=== PATIENT | male | born 1990 | race Caucasian/White ===

== ENCOUNTER 2019-07-19 20:17 | Inpatient (IN) | payer SELFPAY ==
--- NOTE | 2019-07-19 22:16 | EDM.PDOC ---
ED HPI GENERAL MEDICAL PROBLEM - General Chief Complaint: Gastrointestinal Problem Stated Complaint: explosive diarrhea Time Seen by Provider: 07/19/19 21:06 Source of Information: Reports: Patient History Limitations: Reports: No Limitations - History of Present Illness INITIAL COMMENTS - FREE TEXT/NARRATIVE: 29-year-old male presents for evaluation and treatment of diarrhea. Patient reports he has been experiencing diarrhea for the last 1-2 months. Going approximately 10 times a day. At this time he is wearing depends. He reports significant stool urgency with this. States it is very watery and is foul- smelling. He denies any blood in his stool, abdominal pain, nausea, vomiting, fevers or chills. He denies any urinary symptoms. He has been trying over-the- counter antidiarrheal pills without any relief. he has never been seen for this. he denies any recent travel. No history of any recent antibiotic usage. Patient is a type I diabetic. He states that his sugars have been running good for him in the 200s. He is on Lantus and sliding scale NovoLog. [facility]. Patient is seen in the ER on June 09. Under have hypoalbuminemia. Prescribed Lasix for edema. He states that this has now resolved. - Related Data Allergies Allergy/AdvReac Type Severity Reaction Status Date / Time No Known Allergies Allergy Verified 06/08/19 22:48 Home Meds: Home Meds Insulin Glargine,Hum.Rec.Anlog [Lantus Solostar] 36 unit SQ DAILY 11/06/17 [ History] Insulin Lispro [Humalog Kwikpen U-200] 1 unit SUBCUT ASDIRECTED 11/06/17 [ History] Past Medical History - Past Health History Medical/Surgical History: Denies Medical/Surgical History Other Cardiovascular History: aunt states patient has been having blood pressure issues Endocrine/Metabolic History: Reports: Diabetes, Type I Other Dermatologic History: has had foot infections Social & Family History - Family History Family Medical History: Noncontributory - Tobacco Use Smoking Status *Q: Never Smoker Second Hand Smoke Exposure: No - Caffeine Use Caffeine Use: Reports: Coffee - Recreational Drug Use Recreational Drug Use: No ED ROS GENERAL - Review of Systems Review Of Systems: See Below Constitutional: Denies: Fever, Chills Cardiovascular: Denies: Edema Endocrine: Reports: High Glucose (reprots sugars in reji 200-300 recently) GI/Abdominal: Reports: Diarrhea. Denies: Abdominal Pain, Bloody Stool, Nausea, Vomiting : Reports: No Symptoms ED EXAM, GI/ABD - Physical Exam Exam: See Below Exam Limited By: No Limitations General Appearance: Alert, WD/WN, No Apparent Distress Nose: Normal Inspection Throat/Mouth: Normal Inspection, Normal Lips, Normal Voice, No Airway Compromise Respiratory/Chest: No Respiratory Distress, Lungs Clear, Normal Breath Sounds Cardiovascular: Normal Peripheral Pulses, No Murmur, Tachycardia GI/Abdominal Exam: Normal Bowel Sounds, Soft, Non-Tender Neurological: Alert, Oriented, Normal Cognition Psychiatric: Normal Affect, Normal Mood Skin Exam: Warm, Dry, Normal Color Course - Vital Signs Last Recorded V/S: Last Vital Signs Temp 96.7 F 07/19/19 20:25 Pulse 114 H 07/19/19 20:25 Resp 16 07/19/19 20:25 BP 151/113 H 07/19/19 20:25 Pulse Ox 100 07/19/19 20:25 - Orders/Labs/Meds Orders: Active Orders 24 hr Category Date Time Status Peripheral IV Care [RC] . DIRECTED Care 07/19/19 22:18 Active C DIFFICILE BY PCR W/NAP1 [MOLEC] Stat Lab 07/19/19 22:33 Received CULTURE STOOL + SHIGATOX [RM] Stat Lab 07/19/19 22:33 Received WBC, STOOL [OP] Stat Lab 07/19/19 22:33 Received Insulin Regular, Human [HumuLIN R] Med 07/19/19 23:27 Stat 5 unit SUBCUT NOW STA Insulin Regular, Human [HumuLIN R] 100 unit Med 07/19/19 23:15 Active Sodium Chloride 0.9% [Normal Saline] 99 ml IV TITRATE Sodium Chloride 0.9% [Normal Saline] 1,000 ml Med 07/19/19 23:14 Active IV ONETIME Sodium Chloride 0.9% [Saline Flush] Med 07/19/19 22:18 Active 10 ml FLUSH ASDIRECTED PRN Peripheral IV Insertion Adult [OM.PC] Routine Oth 07/19/19 22:18 Ordered Medication Orders Sodium Chloride (Normal Saline) 1,000 mls @ 999 mls/hr IV ONETIME ONE Stop: 07/20/19 00:14 Insulin Human Regular 100 unit (/ Sodium Chloride) 100 mls @ 5.89 mls/hr IV TITRATE SRINIVAS; Protocol Sodium Chloride (Saline Flush) 10 ml FLUSH ASDIRECTED PRN PRN Reason: Keep Vein Open Last Admin: 07/19/19 22:45 Dose: 10 ml Labs: Laboratory Tests 07/19/19 07/19/19 07/19/19 Range/Units 21:32 21:32 21:32 WBC 7.79 (4.23-9.07) K/mm3 RBC 4.74 (4.63-6.08) M/mm3 Hgb 14.6 (13.7-17.5) gm/L Hct 40.8 (40.1-51.0) % MCV 86.1 D (79.0-92.2) fl MCH 30.8 (25.7-32.2) pg MCHC 35.8 H (32.2-35.5) g/dl RDW Std Deviation 38.3 (35.1-43.9) fL Plt Count 375 H (163-337) K/mm3 MPV 9.2 L (9.4-12.3) fl Neutrophils % (Manual) 58 (40-60) % Band Neutrophils % 0 (0-10) % Lymphocytes % (Manual) 31 (20-40) % Atypical Lymphs % 0 % Monocytes % (Manual) 8 (2-10) % Eosinophils % (Manual) 3 (0.8-7.0) % Basophils % (Manual) 0 L (0.2-1.2) Platelet Estimate Adequate RBC Morph Comment Normal Puncture Site ABG pH (7.35-7.45) ABG pCO2 (35.0-45.0) mmHg ABG pO2 (80.0-100.0) mmHg ABG HCO3 (22.0-26.0) meq/L ABG O2 Saturation (96.0-97.0) % ABG Base Excess (-2-2.0) Fernando Test A-a Gradient mmHg O2 Delivery Device FiO2 (21.00-100.00) % Sodium 132 L (136-145) mEq/L Potassium 3.3 L (3.5-5.1) mEq/L Chloride 93 L (98-107) mEq/L Carbon Dioxide 22 (21-32) mEq/L Anion Gap 20.3 H (5-15) BUN 10 (7-18) mg/dL Creatinine 1.3 (0.7-1.3) mg/dL Est Cr Clr Drug Dosing 69.30 mL/min Estimated GFR (MDRD) > 60 (>60) mL/min BUN/Creatinine Ratio 7.7 L (14-18) Glucose 785 H* (74-106) mg/dL Hemoglobin A1c (4.50-6.20) % Calcium 8.2 L (8.5-10.1) mg/dL Magnesium 1.8 (1.8-2.4) mg/dl Total Bilirubin 0.7 (0.2-1.0) mg/dL AST 17 (15-37) U/L ALT 39 (16-63) U/L Alkaline Phosphatase 190 H (46-116) U/L C-Reactive Protein < 0.2 (<1.0) mg/dL Total Protein 6.1 L (6.4-8.2) g/dl Albumin 2.8 L (3.4-5.0) g/dl Globulin 3.3 gm/dL Albumin/Globulin Ratio 0.9 L (1-2) Urine Color (Yellow) Urine Appearance (Clear) Urine pH (5.0-8.0) Ur Specific [place] (1.005-1.030) Urine Protein (Negative) Urine Glucose (UA) (Negative) Urine Ketones (Negative) Urine Occult Blood (Negative) Urine Nitrite (Negative) Urine Bilirubin (Negative) Urine Urobilinogen (0.2-1.0) Ur Leukocyte Esterase (Negative) Urine RBC (0-5) /hpf Urine WBC (0-5) /hpf Ur Squamous Epith Cells (0-5) /hpf Urine Bacteria (FEW) /hpf Urine Mucus (FEW) /hpf Ketones 3.03 (0.0-0.3) mM 07/19/19 07/19/19 07/19/19 Range/Units 21:32 21:52 22:40 WBC (4.23-9.07) K/mm3 RBC (4.63-6.08) M/mm3 Hgb (13.7-17.5) gm/L Hct (40.1-51.0) % MCV (79.0-92.2) fl MCH (25.7-32.2) pg MCHC (32.2-35.5) g/dl RDW Std Deviation (35.1-43.9) fL Plt Count (163-337) K/mm3 MPV (9.4-12.3) fl Neutrophils % (Manual) (40-60) % Band Neutrophils % (0-10) % Lymphocytes % (Manual) (20-40) % Atypical Lymphs % % Monocytes % (Manual) (2-10) % Eosinophils % (Manual) (0.8-7.0) % Basophils % (Manual) (0.2-1.2) Platelet Estimate RBC Morph Comment Puncture Site Lt radial ABG pH 7.34 L (7.35-7.45) ABG pCO2 33.0 L (35.0-45.0) mmHg ABG pO2 93.0 (80.0-100.0) mmHg ABG HCO3 17.3 L (22.0-26.0) meq/L ABG O2 Saturation 97.5 H (96.0-97.0) % ABG Base Excess -7.0 L (-2-2.0) Fernando Test Positive A-a Gradient 16 mmHg O2 Delivery Device Room air FiO2 21.00 (21.00-100.00) % Sodium (136-145) mEq/L Potassium (3.5-5.1) mEq/L Chloride (98-107) mEq/L Carbon Dioxide (21-32) mEq/L Anion Gap (5-15) BUN (7-18) mg/dL Creatinine (0.7-1.3) mg/dL Est Cr Clr Drug Dosing mL/min Estimated GFR (MDRD) (>60) mL/min BUN/Creatinine Ratio (14-18) Glucose (74-106) mg/dL Hemoglobin A1c 12.10 H (4.50-6.20) % Calcium (8.5-10.1) mg/dL Magnesium (1.8-2.4) mg/dl Total Bilirubin (0.2-1.0) mg/dL AST (15-37) U/L ALT (16-63) U/L Alkaline Phosphatase (46-116) U/L C-Reactive Protein (<1.0) mg/dL Total Protein (6.4-8.2) g/dl Albumin (3.4-5.0) g/dl Globulin gm/dL Albumin/Globulin Ratio (1-2) Urine Color Light yellow (Yellow) Urine Appearance Clear (Clear) Urine pH 6.0 (5.0-8.0) Ur Specific [place] 1.010 (1.005-1.030) Urine Protein Negative (Negative) Urine Glucose (UA) 2+ H (Negative) Urine Ketones 2+ H (Negative) Urine Occult Blood Negative (Negative) Urine Nitrite Negative (Negative) Urine Bilirubin Negative (Negative) Urine Urobilinogen 0.2 (0.2-1.0) Ur Leukocyte Esterase Negative (Negative) Urine RBC Not seen (0-5) /hpf Urine WBC Not seen (0-5) /hpf Ur Squamous Epith Cells Not seen (0-5) /hpf Urine Bacteria Rare (FEW) /hpf Urine Mucus Rare (FEW) /hpf Ketones (0.0-0.3) mM Meds: Medications Generic Name Dose Route Start Last Admin Trade Name Freq PRN Reason Stop Dose Admin Sodium Chloride 1,000 mls @ 999 mls/hr 07/19/19 23:14 Normal Saline IV 07/20/19 00:14 ONETIME ONE Insulin Human Regular 100 unit 100 mls @ 5.89 mls/hr 07/19/19 23:15 / Sodium Chloride IV TITRATE SRINIVAS Protocol 0.1 UNITS/KG/HR Sodium Chloride 10 ml 07/19/19 22:18 07/19/19 22:45 Saline Flush FLUSH 10 ml ASDIRECTED PRN Administration Keep Vein Open Discontinued Medications Generic Name Dose Route Start Last Admin Trade Name Rebekah PRN Reason Stop Dose Admin Sodium Chloride 1,000 mls @ 999 mls/hr 07/19/19 22:18 07/19/19 22:45 Normal Saline IV 07/19/19 23:18 999 mls/hr ONETIME ONE Administration Insulin Human Regular 5 unit 07/19/19 23:15 Humulin R IV 07/19/19 23:16 ONETIME ONE Loperamide HCl 4 mg 07/19/19 23:12 07/19/19 23:23 Imodium PO 07/19/19 23:13 4 mg ONETIME ONE Administration Potassium Chloride 40 meq 07/19/19 23:11 07/19/19 23:23 Klor-Con M20 PO 07/19/19 23:12 40 meq ONETIME ONE Administration - Re-Assessments/Exams Free Text/Narrative Re-Assessment/Exam: 07/19/19 23:10 Patient's blood sugar came back at 785. Unfortunately, I did not allow him to eat in the ER as he states his sugars had only been in the 200s to 300s which is normal for him. He then tells me that he went to [facility] and had food at [facility] with a soda and a frosty and before coming to the ER. He did take his Lantus today and did take 12 units with his Zoond[employer] meal. He states his last blood sugar prior to arrival in the ER was in the 300s. He then ate a sandwich here in the ER. He then continued to feel hungry so he ordered [employer]; has not yet arrived. He cannot eat this. Fluids were started. We will also give him 5 units of insulin and start him on a drip. I feel he needs to be admitted. He is not very concerned about his sugar of 785 and feels he can bring this down. Discussed with Dr. Huertas who recommends admission. Patient is agreeable to do this. Discussed case with Dr. Rowland will admit to the ICU. Departure - Departure Time of Disposition: 23:45 Disposition: Admitted As Inpatient 65 Condition: Fair Clinical Impression: Diarrhea, Hyperglycemia - Discharge Information *PRESCRIPTION DRUG MONITORING PROGRAM REVIEWED*: No *COPY OF PRESCRIPTION DRUG MONITORING REPORT IN PATIENT VI: No Referrals: Emre Burciaga MD [Primary Care Provider] - Forms: ED Department Discharge - My Orders Last 24 Hours: My Active Orders 07/19/19 22:18 Peripheral IV Care [RC] . DIRECTED Sodium Chloride 0.9% [Saline Flush] 10 ml FLUSH ASDIRECTED PRN Peripheral IV Insertion Adult [OM.PC] Routine 07/19/19 22:33 C DIFFICILE BY PCR W/NAP1 [MOLEC] Stat CULTURE STOOL + SHIGATOX [RM] Stat WBC, STOOL [OP] Stat 07/19/19 23:14 Sodium Chloride 0.9% [Normal Saline] 1,000 ml IV ONETIME 07/19/19 23:15 Insulin Regular, Human [HumuLIN R] 100 unit Sodium Chloride 0.9% [Normal Saline] 99 ml IV TITRATE 07/19/19 23:27 Insulin Regular, Human [HumuLIN R] 5 unit SUBCUT NOW STA - Assessment/Plan Last 24 Hours: My Active Orders 07/19/19 22:18 Peripheral IV Care [RC] . DIRECTED Sodium Chloride 0.9% [Saline Flush] 10 ml FLUSH ASDIRECTED PRN Peripheral IV Insertion Adult [OM.PC] Routine 07/19/19 22:33 C DIFFICILE BY PCR W/NAP1 [MOLEC] Stat CULTURE STOOL + SHIGATOX [RM] Stat WBC, STOOL [OP] Stat 07/19/19 23:14 Sodium Chloride 0.9% [Normal Saline] 1,000 ml IV ONETIME 07/19/19 23:15 Insulin Regular, Human [HumuLIN R] 100 unit Sodium Chloride 0.9% [Normal Saline] 99 ml IV TITRATE 07/19/19 23:27 Insulin Regular, Human [HumuLIN R] 5 unit SUBCUT NOW STA
[2019-07-19] MEDS ORDERED: Sodium Chloride 0.9% 10 ML Syringe FLUSH PRN (22:18)
[2019-07-19] MEDS ORDERED: Sodium Chloride 0.9% 1,000 ML IV ONE ×2 (22:18→23:14)
[2019-07-19 22:57] LABS: HEMOGLOBIN A1C 12.1 % (4.50-6.20)
[2019-07-19] MEDS ORDERED: Potassium Chloride 20 MEQ Tab.ER PO ONE (23:11)
[2019-07-19] MEDS ORDERED: Loperamide 2 MG Cap PO ONE (23:12)
[2019-07-19] MEDS ORDERED: Insulin Regular, Human 100 Units/ML 3 ML Vial IV ONE (23:15)
[2019-07-19] MEDS ORDERED: Insulin Regular, Human 100 Units/ML 3 ML Vial SUBCUT STA (23:27)
[2019-07-20] MEDS ORDERED: Acetaminophen 325 MG Tab PO PRN (01:04)
[2019-07-20] MEDS ORDERED: Ondansetron 4 MG Tab.DIS PO PRN (01:04)
--- NOTE | 2019-07-20 01:14 | PCM.HP.2 ---
H&P History of Present Illness - General Date of Service: 07/20/19 Admit Problem/Dx: Admission Diagnosis/Problem Admission Diagnosis/Problem Hyperglycemia - History of Present Illness Initial Comments - Free Text/Narative: 29-year-old type I diabetic comes into the emergency room with diarrhea for the last 2 months. He has had multiple bowel movements a day that are loose and watery. He states when he eats food seems to go right through him. Patient denies any bloody stools, hematochezia, or melena. He states that several months ago he did have antibiotics for staph infection. Patient appears to be confused about exactly when that was and how it relates to his diarrhea. In the emergency room his blood sugar was found to be 785. Patient went out with friends and ate at [facility] and drink a soda and half of a frosty before going to the emergency room. He gave himself 12 units with his meal. He did take his Lantus 36 units today. In the emergency room he did give a stool sample and it was positive for C. difficile toxin. in the emergency room he was given another 5 units of Humalog and started on an insulin drip. He was then transferred to the ICU. - Related Data Allergies/Adverse Reactions: Allergies Allergy/AdvReac Type Severity Reaction Status Date / Time No Known Allergies Allergy Verified 06/08/19 22:48 Home Medications: Home Meds Insulin Glargine,Hum.Rec.Anlog [Lantus Solostar] 36 unit SQ DAILY 11/06/17 [ History] Insulin Lispro [Humalog Kwikpen U-200] 1 unit SUBCUT ASDIRECTED 11/06/17 [ History] Vancomycin [Vancomycin 50 MG/ML Soln] 125 mg PO QID bottle 07/20/19 [Rx] Past Medical History - Past Health History Medical/Surgical History: Denies Medical/Surgical History Other Cardiovascular History: aunt states patient has been having blood pressure issues Endocrine/Metabolic History: Reports: Diabetes, Type I Other Dermatologic History: has had foot infections Social & Family History - Family History Family Medical History: Noncontributory - Tobacco Use Smoking Status *Q: Current Every Day Smoker Years of Tobacco use: 10 Packs/Tins Daily: 0.5 Used Tobacco, but Quit: No Second Hand Smoke Exposure: No - Caffeine Use Caffeine Use: Reports: Coffee - Recreational Drug Use Recreational Drug Use: No H&P Review of Systems - Review of Systems: Review Of Systems: ROS reveals no pertinent complaints other than HPI. Exam - Exam Exam: See Below - Vital Signs Vital Signs: Last Vital Signs Temp 97.5 F 07/20/19 00:25 Pulse 95 07/20/19 00:25 Resp 16 07/20/19 00:25 BP 131/98 H 07/20/19 00:25 Pulse Ox 99 07/20/19 00:25 Weight: 117 lb 3.2 oz - Exam Quality Assessment: No: Supplemental Oxygen General: Alert, Oriented HEENT: Conjunctiva Clear, EACs Clear, Mucosa Moist & [place] Neck: Supple, Trachea Midline Lungs: Clear to Auscultation, Normal Respiratory Effort Cardiovascular: Regular Rate, Regular Rhythm GI/Abdominal Exam: Normal Bowel Sounds, Soft, Non-Tender, No Organomegaly, No Distention Extremities: Normal Inspection, Normal Range of Motion, Non-Tender, No Pedal Edema Skin: Warm, Dry, Intact Neuro Extensive - Mental Status: Alert, Oriented x3 Neuro Extensive - Motor, Sensory, Reflexes: CN II-XII Intact, Normal Gait Psychiatric: Alert, Normal Affect, Normal Mood - Patient Data Lab Results Last 24 hrs: Laboratory Results - last 24 hr 07/19/19 07/19/19 07/19/19 Range/Units 21:32 21:32 21:32 WBC 7.79 (4.23-9.07) K/mm3 RBC 4.74 (4.63-6.08) M/mm3 Hgb 14.6 (13.7-17.5) gm/L Hct 40.8 (40.1-51.0) % MCV 86.1 D (79.0-92.2) fl MCH 30.8 (25.7-32.2) pg MCHC 35.8 H (32.2-35.5) g/dl RDW Std Deviation 38.3 (35.1-43.9) fL Plt Count 375 H (163-337) K/mm3 MPV 9.2 L (9.4-12.3) fl Neutrophils % (Manual) 58 (40-60) % Band Neutrophils % 0 (0-10) % Lymphocytes % (Manual) 31 (20-40) % Atypical Lymphs % 0 % Monocytes % (Manual) 8 (2-10) % Eosinophils % (Manual) 3 (0.8-7.0) % Basophils % (Manual) 0 L (0.2-1.2) Platelet Estimate Adequate RBC Morph Comment Normal Puncture Site ABG pH (7.35-7.45) ABG pCO2 (35.0-45.0) mmHg ABG pO2 (80.0-100.0) mmHg ABG HCO3 (22.0-26.0) meq/L ABG O2 Saturation (96.0-97.0) % ABG Base Excess (-2-2.0) Fernando Test A-a Gradient mmHg O2 Delivery Device FiO2 (21.00-100.00) % Sodium 132 L (136-145) mEq/L Potassium 3.3 L (3.5-5.1) mEq/L Chloride 93 L (98-107) mEq/L Carbon Dioxide 22 (21-32) mEq/L Anion Gap 20.3 H (5-15) BUN 10 (7-18) mg/dL Creatinine 1.3 (0.7-1.3) mg/dL Est Cr Clr Drug Dosing 69.30 mL/min Estimated GFR (MDRD) > 60 (>60) mL/min BUN/Creatinine Ratio 7.7 L (14-18) Glucose 785 H* (74-106) mg/dL Hemoglobin A1c (4.50-6.20) % Calcium 8.2 L (8.5-10.1) mg/dL Magnesium 1.8 (1.8-2.4) mg/dl Total Bilirubin 0.7 (0.2-1.0) mg/dL AST 17 (15-37) U/L ALT 39 (16-63) U/L Alkaline Phosphatase 190 H (46-116) U/L C-Reactive Protein < 0.2 (<1.0) mg/dL Total Protein 6.1 L (6.4-8.2) g/dl Albumin 2.8 L (3.4-5.0) g/dl Globulin 3.3 gm/dL Albumin/Globulin Ratio 0.9 L (1-2) Urine Color (Yellow) Urine Appearance (Clear) Urine pH (5.0-8.0) Ur Specific [place] (1.005-1.030) Urine Protein (Negative) Urine Glucose (UA) (Negative) Urine Ketones (Negative) Urine Occult Blood (Negative) Urine Nitrite (Negative) Urine Bilirubin (Negative) Urine Urobilinogen (0.2-1.0) Ur Leukocyte Esterase (Negative) Urine RBC (0-5) /hpf Urine WBC (0-5) /hpf Ur Squamous Epith Cells (0-5) /hpf Urine Bacteria (FEW) /hpf Urine Mucus (FEW) /hpf Ketones 3.03 (0.0-0.3) mM C.difficile 027-NAP1-B1 C. difficile Tox (PCR) 07/19/19 07/19/19 07/19/19 Range/Units 21:32 21:52 22:33 WBC (4.23-9.07) K/mm3 RBC (4.63-6.08) M/mm3 Hgb (13.7-17.5) gm/L Hct (40.1-51.0) % MCV (79.0-92.2) fl MCH (25.7-32.2) pg MCHC (32.2-35.5) g/dl RDW Std Deviation (35.1-43.9) fL Plt Count (163-337) K/mm3 MPV (9.4-12.3) fl Neutrophils % (Manual) (40-60) % Band Neutrophils % (0-10) % Lymphocytes % (Manual) (20-40) % Atypical Lymphs % % Monocytes % (Manual) (2-10) % Eosinophils % (Manual) (0.8-7.0) % Basophils % (Manual) (0.2-1.2) Platelet Estimate RBC Morph Comment Puncture Site ABG pH (7.35-7.45) ABG pCO2 (35.0-45.0) mmHg ABG pO2 (80.0-100.0) mmHg ABG HCO3 (22.0-26.0) meq/L ABG O2 Saturation (96.0-97.0) % ABG Base Excess (-2-2.0) Fernando Test A-a Gradient mmHg O2 Delivery Device FiO2 (21.00-100.00) % Sodium (136-145) mEq/L Potassium (3.5-5.1) mEq/L Chloride (98-107) mEq/L Carbon Dioxide (21-32) mEq/L Anion Gap (5-15) BUN (7-18) mg/dL Creatinine (0.7-1.3) mg/dL Est Cr Clr Drug Dosing mL/min Estimated GFR (MDRD) (>60) mL/min BUN/Creatinine Ratio (14-18) Glucose (74-106) mg/dL Hemoglobin A1c 12.10 H (4.50-6.20) % Calcium (8.5-10.1) mg/dL Magnesium (1.8-2.4) mg/dl Total Bilirubin (0.2-1.0) mg/dL AST (15-37) U/L ALT (16-63) U/L Alkaline Phosphatase (46-116) U/L C-Reactive Protein (<1.0) mg/dL Total Protein (6.4-8.2) g/dl Albumin (3.4-5.0) g/dl Globulin gm/dL Albumin/Globulin Ratio (1-2) Urine Color Light yellow (Yellow) Urine Appearance Clear (Clear) Urine pH 6.0 (5.0-8.0) Ur Specific [place] 1.010 (1.005-1.030) Urine Protein Negative (Negative) Urine Glucose (UA) 2+ H (Negative) Urine Ketones 2+ H (Negative) Urine Occult Blood Negative (Negative) Urine Nitrite Negative (Negative) Urine Bilirubin Negative (Negative) Urine Urobilinogen 0.2 (0.2-1.0) Ur Leukocyte Esterase Negative (Negative) Urine RBC Not seen (0-5) /hpf Urine WBC Not seen (0-5) /hpf Ur Squamous Epith Cells Not seen (0-5) /hpf Urine Bacteria Rare (FEW) /hpf Urine Mucus Rare (FEW) /hpf Ketones (0.0-0.3) mM C.difficile 027-NAP1-B1 Presumptive negative C. difficile Tox (PCR) Positive H 07/19/19 07/19/19 Range/Units 22:40 23:55 WBC (4.23-9.07) K/mm3 RBC (4.63-6.08) M/mm3 Hgb (13.7-17.5) gm/L Hct (40.1-51.0) % MCV (79.0-92.2) fl MCH (25.7-32.2) pg MCHC (32.2-35.5) g/dl RDW Std Deviation (35.1-43.9) fL Plt Count (163-337) K/mm3 MPV (9.4-12.3) fl Neutrophils % (Manual) (40-60) % Band Neutrophils % (0-10) % Lymphocytes % (Manual) (20-40) % Atypical Lymphs % % Monocytes % (Manual) (2-10) % Eosinophils % (Manual) (0.8-7.0) % Basophils % (Manual) (0.2-1.2) Platelet Estimate RBC Morph Comment Puncture Site Lt radial ABG pH 7.34 L (7.35-7.45) ABG pCO2 33.0 L (35.0-45.0) mmHg ABG pO2 93.0 (80.0-100.0) mmHg ABG HCO3 17.3 L (22.0-26.0) meq/L ABG O2 Saturation 97.5 H (96.0-97.0) % ABG Base Excess -7.0 L (-2-2.0) Fernando Test Positive A-a Gradient 16 mmHg O2 Delivery Device Room air FiO2 21.00 (21.00-100.00) % Sodium (136-145) mEq/L Potassium (3.5-5.1) mEq/L Chloride (98-107) mEq/L Carbon Dioxide (21-32) mEq/L Anion Gap (5-15) BUN (7-18) mg/dL Creatinine (0.7-1.3) mg/dL Est Cr Clr Drug Dosing mL/min Estimated GFR (MDRD) (>60) mL/min BUN/Creatinine Ratio (14-18) Glucose 568 H* (74-106) mg/dL Hemoglobin A1c (4.50-6.20) % Calcium (8.5-10.1) mg/dL Magnesium (1.8-2.4) mg/dl Total Bilirubin (0.2-1.0) mg/dL AST (15-37) U/L ALT (16-63) U/L Alkaline Phosphatase (46-116) U/L C-Reactive Protein (<1.0) mg/dL Total Protein (6.4-8.2) g/dl Albumin (3.4-5.0) g/dl Globulin gm/dL Albumin/Globulin Ratio (1-2) Urine Color (Yellow) Urine Appearance (Clear) Urine pH (5.0-8.0) Ur Specific [place] (1.005-1.030) Urine Protein (Negative) Urine Glucose (UA) (Negative) Urine Ketones (Negative) Urine Occult Blood (Negative) Urine Nitrite (Negative) Urine Bilirubin (Negative) Urine Urobilinogen (0.2-1.0) Ur Leukocyte Esterase (Negative) Urine RBC (0-5) /hpf Urine WBC (0-5) /hpf Ur Squamous Epith Cells (0-5) /hpf Urine Bacteria (FEW) /hpf Urine Mucus (FEW) /hpf Ketones (0.0-0.3) mM C.difficile 027-NAP1-B1 C. difficile Tox (PCR) Result Diagrams: 07/20/19 05:20 07/20/19 05:20 Yayo Results Last 24 hrs: Microbiology 07/19/19 22:33 Stool for WBCs - Final Stool / Feces Problem List Initiated/Reviewed/Updated: Yes Orders Last 24hrs: Active Orders 24 hr Category Date Time Status Patient Status [ADT] Routine ADT 07/20/19 00:00 Active Blood Glucose Check, Bedside [RC] Q1H Care 07/20/19 01:08 Ordered Oxygen Therapy [RC] PRN Care 07/20/19 01:05 Ordered Peripheral IV Care [RC] Q2HR Care 07/19/19 22:18 Active Up ad Karla [RC] ASDIRECTED Care 07/20/19 01:04 Ordered VTE/DVT Education [RC] PER UNIT ROUTINE Care 07/20/19 01:05 Ordered Vital Signs [RC] ASDIRECTED Care 07/20/19 01:04 Ordered Consistent Carbohydrate Diet [DIET] Diet 07/20/19 Breakfast Ordered CBC WITH AUTO DIFF [HEME] AM Lab 07/20/19 05:11 Ordered COMPREHENSIVE METABOLIC PN,CMP [CHEM] AM Lab 07/20/19 05:11 Ordered CULTURE STOOL + SHIGATOX [RM] Stat Lab 07/19/19 22:33 Received MAGNESIUM [CHEM] AM Lab 07/20/19 05:11 Ordered Acetaminophen [Tylenol] Med 07/20/19 01:04 Ordered 650 mg PO Q4H PRN Enoxaparin [Lovenox] Med 07/20/19 09:00 Ordered 40 mg SUBCUT DAILY Insulin Glarg,Human.Rec.Analog [LantUS] Med 07/20/19 09:00 Ordered 36 unit SUBCUT DAILY Insulin Lispro [HumaLOG] Med 07/20/19 07:00 Ordered 12 unit SUBCUT TIDAC Insulin Regular, Human [HumuLIN R] 100 unit Med 07/19/19 23:15 Active Sodium Chloride 0.9% [Normal Saline] 99 ml IV TITRATE NS + KCl 20mEq/L [Normal Saline with 20 mEq KCl] 1,000 Med 07/20/19 01:15 Ordered ml IV ASDIRECTED Ondansetron [Zofran ODT] Med 07/20/19 01:04 Ordered 4 mg PO Q4H PRN Sodium Chloride 0.9% [Saline Flush] Med 07/19/19 22:18 Active 10 ml FLUSH ASDIRECTED PRN Vancomycin Med 07/20/19 01:15 Ordered 125 mg PO QID Peripheral IV Insertion Adult [OM.PC] Routine Oth 07/19/19 22:18 Ordered Resuscitation Status Routine Resus Stat 07/20/19 01:04 Ordered Medication Orders Acetaminophen (Tylenol) 650 mg PO Q4H PRN PRN Reason: Pain (Mild 1-3)/fever Enoxaparin Sodium (Lovenox) 40 mg SUBCUT DAILY [facility] Insulin Human Regular 100 unit (/ Sodium Chloride) 100 mls @ 5.89 mls/hr IV TITRATE SRINIVAS; Protocol Last Admin: 07/20/19 00:26 Dose: 0.1 units/kg/hr, 5.89 mls/hr Potassium Chloride/Sodium Chloride (Normal Saline With 20 Meq Kcl) 1,000 mls @ 250 mls/hr IV ASDIRECTED [facility] Insulin Glargine (Lantus) 36 unit SUBCUT DAILY [facility] Insulin Human Lispro (Humalog) 12 unit SUBCUT TIDAC SRINIVAS Ondansetron HCl (Zofran Odt) 4 mg PO Q4H PRN PRN Reason: nausea, able to take PO Sodium Chloride (Saline Flush) 10 ml FLUSH ASDIRECTED PRN PRN Reason: Keep Vein Open Last Admin: 07/19/19 22:45 Dose: 10 ml Vancomycin HCl (Vancomycin) 125 mg PO QID [facility] Assessment/Plan Comment:: Assessment * C. difficile colitis * Hyperosmolar hyperglycemia state with initial blood sugars of 785 * Type 1 diabetes poorly controlled with hemoglobiof 12.1 Plan * Admit to ICU * start vancomycin 125 mg by mouth 4 times a day for 10 days * normal saline with 20 mEq per liter KCl at 250 mL an hour * Fingerstick blood sugars every one hour * recheck basic metabolic panel and magnesium now * CBC, CMP, mag in the morning. * Insulin drip until blood sugars are less than 300 and then switched to sliding scale and a fixed dose. * Diabetic education is not available on the weekends so will do diabetic education with nursing and myself. * Restart diabetic diet/carb constant diet in the morning when blood sugars are less than 300. * Prognosis good * CODE STATUS full code - Mortality Measure Prognosis:: Good
[2019-07-20] MEDS ORDERED: Vancomycin 125 MG Cap PO SCH (01:15)
[2019-07-20] MEDS: NS + KCl 20mEq/L 1,000 ML IV SCH ×2 (01:36→05:31)
[2019-07-20] MEDS ORDERED: Vancomycin 50 MG/ML Oral Solution Bottle Kit PO ONE (02:00)
[2019-07-20] MEDS ORDERED: Potassium Chloride 20 MEQ Tab.ER PO ONE (06:56)
[2019-07-20] MEDS: Insulin Lispro 100 Units/ML 3 ML Vial SUBCUT SCH ×4 (07:55→10:56)
[2019-07-20] MEDS: Insulin Glarg,Human.Rec.Analog 100 UNIT/ML ML SUBCUT SCH ×2 (07:57→09:08)
[2019-07-20] MEDS: Enoxaparin 40 MG/0.4 ML Syringe SUBCUT SCH ×2 (07:58→09:08)
[2019-07-20] MEDS: Vancomycin 50 MG/ML Oral Solution Bottle Kit PO SCH ×2 (07:58→08:05)
--- NOTE | 2019-07-20 15:04 | PCM.DCSUM1 ---
Discharge Summary - Hospital Course HPI Initial Comments: 29-year-old type I diabetic comes into the emergency room with diarrhea for the last 2 months. He has had multiple bowel movements a day that are loose and watery. He states when he eats food seems to go right through him. Patient denies any bloody stools, hematochezia, or melena. He states that several months ago he did have antibiotics for staph infection. Patient appears to be confused about exactly when that was and how it relates to his diarrhea. In the emergency room his blood sugar was found to be 785. Patient went out with friends and ate at [employer] and drink a soda and half of a frosty before going to the emergency room. He gave himself 12 units with his meal. He did take his Lantus 36 units today. In the emergency room he did give a stool sample and it was positive for C. difficile toxin. in the emergency room he was given another 5 units of Humalog and started on an insulin drip. He was then transferred to the ICU. Diagnosis: Stroke: No - Discharge Data Discharge Date: 07/20/19 Discharge Disposition: Home, Self-Care 01 Condition: Good - Patient Summary/Data Hospital Course: Assessment * C. difficile colitis * Hyperosmolar hyperglycemia state with initial blood sugars of 785 * Type 1 diabetes poorly controlled with hemoglobiof 12.1 Plan * Admit to ICU * start vancomycin 125 mg by mouth 4 times a day for 10 days * normal saline with 20 mEq per liter KCl at 250 mL an hour * Fingerstick blood sugars every one hour * recheck basic metabolic panel and magnesium now * CBC, CMP, mag in the morning. * Insulin drip until blood sugars are less than 300 and then switched to sliding scale and a fixed dose. * Diabetic education is not available on the weekends so will do diabetic education with nursing and myself. * Restart diabetic diet/carb constant diet in the morning when blood sugars are less than 300. * Prognosis good * CODE STATUS full code - Patient Instructions Diet: Diabetic Diet Activity: As Tolerated Driving: May Drive Today Showering/Bathing: May Shower Notify Provider of: Fever, Nausea and/or Vomiting Other/Special Instructions: Follow up with PCP next week. Take 10 days of vancomycin 125 mg every 6 hours. Check blood sugars 4 times a day and follow a diabetic diet. - Discharge Plan *PRESCRIPTION DRUG MONITORING PROGRAM REVIEWED*: No *COPY OF PRESCRIPTION DRUG MONITORING REPORT IN PATIENT VI: No Home Medications: Home Meds Insulin Glargine,Hum.Rec.Anlog [Lantus Solostar] 36 unit SQ DAILY 11/06/17 [ History] Insulin Lispro [Humalog Kwikpen U-200] 1 unit SUBCUT ASDIRECTED 11/06/17 [ History] Vancomycin [Vancomycin 50 MG/ML Soln] 125 mg PO QID bottle 07/20/19 [Rx] Oxygen Therapy Mode: Room Air Patient Handouts: Hyperglycemia, [id number] Forms: ED Department Discharge Referrals: Emre Burciaga MD [Primary Care Provider] - - Discharge Summary/Plan Comment DC Time >30 min.: Yes Discharge Summary/Plan Comment: patient be discharged on vancomycin 125 mg by mouth every 6 hours for 10 days. Counseled on keeping his blood sugars better controlled and using his carb correction and sliding scale appropriately. Patient is to follow-up with his primary care provider early next week. - General Info Date of Service: 07/20/19 Admission Dx/Problem (Free Text: Admission Diagnosis/Problem Admission Diagnosis/Problem Hyperglycemia Subjective Update: patient did well overnight with blood sugars dropping into the upper 100s. He was switched over to sliding scale and fixed dose of basal and prandial insulin. Patient states he is doing well. He has not had any more bowel movements and has had 2 doses of vancomycin. - Review of Systems General: Reports: No Symptoms HEENT: Reports: No Symptoms Pulmonary: Reports: No Symptoms Cardiovascular: Reports: No Symptoms. Denies: Chest Pain, Dyspnea on Exertion Gastrointestinal: Reports: No Symptoms. Denies: Abdominal Pain - Patient Data Vitals - Most Recent: Last Vital Signs Temp 97.9 F 07/20/19 08:00 Pulse 95 07/20/19 08:00 Resp 15 07/20/19 08:00 BP 132/92 H 07/20/19 08:00 Pulse Ox 100 07/20/19 08:00 Weight - Most Recent: 117 lb 3.2 oz I&O - Last 24 hours: Intake & Output 07/20/19 07/20/19 07/20/19 06:59 14:59 22:59 Intake Total 1279 420 Balance 1279 420 Lab Results - Last 24 hrs: Laboratory Results - last 24 hr 07/19/19 07/19/19 07/19/19 Range/Units 21:32 21:32 21:32 WBC 7.79 (4.23-9.07) K/mm3 RBC 4.74 (4.63-6.08) M/mm3 Hgb 14.6 (13.7-17.5) gm/L Hct 40.8 (40.1-51.0) % MCV 86.1 D (79.0-92.2) fl MCH 30.8 (25.7-32.2) pg MCHC 35.8 H (32.2-35.5) g/dl RDW Std Deviation 38.3 (35.1-43.9) fL Plt Count 375 H (163-337) K/mm3 MPV 9.2 L (9.4-12.3) fl Neut % (Auto) (34.0-67.9) % Lymph % (Auto) (21.8-53.1) % [place] % (Auto) (5.3-12.2) % Eos % (Auto) (0.8-7.0) Baso % (Auto) (0.1-1.2) % Neut # (Auto) (1.78-5.38) K/mm3 Lymph # (Auto) (1.32-3.57) K/mm3 [place] # (Auto) (0.30-0.82) K/mm3 Eos # (Auto) (0.04-0.54) K/mm3 Baso # (Auto) (0.01-0.08) K/mm3 Neutrophils % (Manual) 58 (40-60) % Band Neutrophils % 0 (0-10) % Lymphocytes % (Manual) 31 (20-40) % Atypical Lymphs % 0 % Monocytes % (Manual) 8 (2-10) % Eosinophils % (Manual) 3 (0.8-7.0) % Basophils % (Manual) 0 L (0.2-1.2) Platelet Estimate Adequate RBC Morph Comment Normal Puncture Site ABG pH (7.35-7.45) ABG pCO2 (35.0-45.0) mmHg ABG pO2 (80.0-100.0) mmHg ABG HCO3 (22.0-26.0) meq/L ABG O2 Saturation (96.0-97.0) % ABG Base Excess (-2-2.0) Fernando Test A-a Gradient mmHg O2 Delivery Device FiO2 (21.00-100.00) % Sodium 132 L (136-145) mEq/L Potassium 3.3 L (3.5-5.1) mEq/L Chloride 93 L (98-107) mEq/L Carbon Dioxide 22 (21-32) mEq/L Anion Gap 20.3 H (5-15) BUN 10 (7-18) mg/dL Creatinine 1.3 (0.7-1.3) mg/dL Est Cr Clr Drug Dosing 69.30 mL/min Estimated GFR (MDRD) > 60 (>60) mL/min BUN/Creatinine Ratio 7.7 L (14-18) Glucose 785 H* (74-106) mg/dL POC Glucose (70-105) mg/dL Hemoglobin A1c (4.50-6.20) % Calcium 8.2 L (8.5-10.1) mg/dL Magnesium 1.8 (1.8-2.4) mg/dl Total Bilirubin 0.7 (0.2-1.0) mg/dL AST 17 (15-37) U/L ALT 39 (16-63) U/L Alkaline Phosphatase 190 H (46-116) U/L C-Reactive Protein < 0.2 (<1.0) mg/dL Total Protein 6.1 L (6.4-8.2) g/dl Albumin 2.8 L (3.4-5.0) g/dl Globulin 3.3 gm/dL Albumin/Globulin Ratio 0.9 L (1-2) Urine Color (Yellow) Urine Appearance (Clear) Urine pH (5.0-8.0) Ur Specific Oneco (1.005-1.030) Urine Protein (Negative) Urine Glucose (UA) (Negative) Urine Ketones (Negative) Urine Occult Blood (Negative) Urine Nitrite (Negative) Urine Bilirubin (Negative) Urine Urobilinogen (0.2-1.0) Ur Leukocyte Esterase (Negative) Urine RBC (0-5) /hpf Urine WBC (0-5) /hpf Ur Squamous Epith Cells (0-5) /hpf Urine Bacteria (FEW) /hpf Urine Mucus (FEW) /hpf Ketones 3.03 (0.0-0.3) mM C.difficile 027-NAP1-B1 C. difficile Tox (PCR) 07/19/19 07/19/19 07/19/19 Range/Units 21:32 21:52 22:33 WBC (4.23-9.07) K/mm3 RBC (4.63-6.08) M/mm3 Hgb (13.7-17.5) gm/L Hct (40.1-51.0) % MCV (79.0-92.2) fl MCH (25.7-32.2) pg MCHC (32.2-35.5) g/dl RDW Std Deviation (35.1-43.9) fL Plt Count (163-337) K/mm3 MPV (9.4-12.3) fl Neut % (Auto) (34.0-67.9) % Lymph % (Auto) (21.8-53.1) % [place] % (Auto) (5.3-12.2) % Eos % (Auto) (0.8-7.0) Baso % (Auto) (0.1-1.2) % Neut # (Auto) (1.78-5.38) K/mm3 Lymph # (Auto) (1.32-3.57) K/mm3 [place] # (Auto) (0.30-0.82) K/mm3 Eos # (Auto) (0.04-0.54) K/mm3 Baso # (Auto) (0.01-0.08) K/mm3 Neutrophils % (Manual) (40-60) % Band Neutrophils % (0-10) % Lymphocytes % (Manual) (20-40) % Atypical Lymphs % % Monocytes % (Manual) (2-10) % Eosinophils % (Manual) (0.8-7.0) % Basophils % (Manual) (0.2-1.2) Platelet Estimate RBC Morph Comment Puncture Site ABG pH (7.35-7.45) ABG pCO2 (35.0-45.0) mmHg ABG pO2 (80.0-100.0) mmHg ABG HCO3 (22.0-26.0) meq/L ABG O2 Saturation (96.0-97.0) % ABG Base Excess (-2-2.0) Fernando Test A-a Gradient mmHg O2 Delivery Device FiO2 (21.00-100.00) % Sodium (136-145) mEq/L Potassium (3.5-5.1) mEq/L Chloride (98-107) mEq/L Carbon Dioxide (21-32) mEq/L Anion Gap (5-15) BUN (7-18) mg/dL Creatinine (0.7-1.3) mg/dL Est Cr Clr Drug Dosing mL/min Estimated GFR (MDRD) (>60) mL/min BUN/Creatinine Ratio (14-18) Glucose (74-106) mg/dL POC Glucose (70-105) mg/dL Hemoglobin A1c 12.10 H (4.50-6.20) % Calcium (8.5-10.1) mg/dL Magnesium (1.8-2.4) mg/dl Total Bilirubin (0.2-1.0) mg/dL AST (15-37) U/L ALT (16-63) U/L Alkaline Phosphatase (46-116) U/L C-Reactive Protein (<1.0) mg/dL Total Protein (6.4-8.2) g/dl Albumin (3.4-5.0) g/dl Globulin gm/dL Albumin/Globulin Ratio (1-2) Urine Color Light yellow (Yellow) Urine Appearance Clear (Clear) Urine pH 6.0 (5.0-8.0) Ur Specific Oneco 1.010 (1.005-1.030) Urine Protein Negative (Negative) Urine Glucose (UA) 2+ H (Negative) Urine Ketones 2+ H (Negative) Urine Occult Blood Negative (Negative) Urine Nitrite Negative (Negative) Urine Bilirubin Negative (Negative) Urine Urobilinogen 0.2 (0.2-1.0) Ur Leukocyte Esterase Negative (Negative) Urine RBC Not seen (0-5) /hpf Urine WBC Not seen (0-5) /hpf Ur Squamous Epith Cells Not seen (0-5) /hpf Urine Bacteria Rare (FEW) /hpf Urine Mucus Rare (FEW) /hpf Ketones (0.0-0.3) mM C.difficile 027-NAP1-B1 Presumptive negative C. difficile Tox (PCR) Positive H 07/19/19 07/19/19 07/20/19 Range/Units 22:40 23:55 01:38 WBC (4.23-9.07) K/mm3 RBC (4.63-6.08) M/mm3 Hgb (13.7-17.5) gm/L Hct (40.1-51.0) % MCV (79.0-92.2) fl MCH (25.7-32.2) pg MCHC (32.2-35.5) g/dl RDW Std Deviation (35.1-43.9) fL Plt Count (163-337) K/mm3 MPV (9.4-12.3) fl Neut % (Auto) (34.0-67.9) % Lymph % (Auto) (21.8-53.1) % [place] % (Auto) (5.3-12.2) % Eos % (Auto) (0.8-7.0) Baso % (Auto) (0.1-1.2) % Neut # (Auto) (1.78-5.38) K/mm3 Lymph # (Auto) (1.32-3.57) K/mm3 [place] # (Auto) (0.30-0.82) K/mm3 Eos # (Auto) (0.04-0.54) K/mm3 Baso # (Auto) (0.01-0.08) K/mm3 Neutrophils % (Manual) (40-60) % Band Neutrophils % (0-10) % Lymphocytes % (Manual) (20-40) % Atypical Lymphs % % Monocytes % (Manual) (2-10) % Eosinophils % (Manual) (0.8-7.0) % Basophils % (Manual) (0.2-1.2) Platelet Estimate RBC Morph Comment Puncture Site Lt radial ABG pH 7.34 L (7.35-7.45) ABG pCO2 33.0 L (35.0-45.0) mmHg ABG pO2 93.0 (80.0-100.0) mmHg ABG HCO3 17.3 L (22.0-26.0) meq/L ABG O2 Saturation 97.5 H (96.0-97.0) % ABG Base Excess -7.0 L (-2-2.0) Fernando Test Positive A-a Gradient 16 mmHg O2 Delivery Device Room air FiO2 21.00 (21.00-100.00) % Sodium (136-145) mEq/L Potassium (3.5-5.1) mEq/L Chloride (98-107) mEq/L Carbon Dioxide (21-32) mEq/L Anion Gap (5-15) BUN (7-18) mg/dL Creatinine (0.7-1.3) mg/dL Est Cr Clr Drug Dosing mL/min Estimated GFR (MDRD) (>60) mL/min BUN/Creatinine Ratio (14-18) Glucose 568 H* (74-106) mg/dL POC Glucose 325 H (70-105) mg/dL Hemoglobin A1c (4.50-6.20) % Calcium (8.5-10.1) mg/dL Magnesium (1.8-2.4) mg/dl Total Bilirubin (0.2-1.0) mg/dL AST (15-37) U/L ALT (16-63) U/L Alkaline Phosphatase (46-116) U/L C-Reactive Protein (<1.0) mg/dL Total Protein (6.4-8.2) g/dl Albumin (3.4-5.0) g/dl Globulin gm/dL Albumin/Globulin Ratio (1-2) Urine Color (Yellow) Urine Appearance (Clear) Urine pH (5.0-8.0) Ur Specific Oneco (1.005-1.030) Urine Protein (Negative) Urine Glucose (UA) (Negative) Urine Ketones (Negative) Urine Occult Blood (Negative) Urine Nitrite (Negative) Urine Bilirubin (Negative) Urine Urobilinogen (0.2-1.0) Ur Leukocyte Esterase (Negative) Urine RBC (0-5) /hpf Urine WBC (0-5) /hpf Ur Squamous Epith Cells (0-5) /hpf Urine Bacteria (FEW) /hpf Urine Mucus (FEW) /hpf Ketones (0.0-0.3) mM C.difficile 027-NAP1-B1 C. difficile Tox (PCR) 07/20/19 07/20/19 07/20/19 Range/Units 01:49 02:51 03:50 WBC (4.23-9.07) K/mm3 RBC (4.63-6.08) M/mm3 Hgb (13.7-17.5) gm/L Hct (40.1-51.0) % MCV (79.0-92.2) fl MCH (25.7-32.2) pg MCHC (32.2-35.5) g/dl RDW Std Deviation (35.1-43.9) fL Plt Count (163-337) K/mm3 MPV (9.4-12.3) fl Neut % (Auto) (34.0-67.9) % Lymph % (Auto) (21.8-53.1) % [place] % (Auto) (5.3-12.2) % Eos % (Auto) (0.8-7.0) Baso % (Auto) (0.1-1.2) % Neut # (Auto) (1.78-5.38) K/mm3 Lymph # (Auto) (1.32-3.57) K/mm3 [place] # (Auto) (0.30-0.82) K/mm3 Eos # (Auto) (0.04-0.54) K/mm3 Baso # (Auto) (0.01-0.08) K/mm3 Neutrophils % (Manual) (40-60) % Band Neutrophils % (0-10) % Lymphocytes % (Manual) (20-40) % Atypical Lymphs % % Monocytes % (Manual) (2-10) % Eosinophils % (Manual) (0.8-7.0) % Basophils % (Manual) (0.2-1.2) Platelet Estimate RBC Morph Comment Puncture Site ABG pH (7.35-7.45) ABG pCO2 (35.0-45.0) mmHg ABG pO2 (80.0-100.0) mmHg ABG HCO3 (22.0-26.0) meq/L ABG O2 Saturation (96.0-97.0) % ABG Base Excess (-2-2.0) Fernando Test A-a Gradient mmHg O2 Delivery Device FiO2 (21.00-100.00) % Sodium 137 (136-145) mEq/L Potassium 3.4 L (3.5-5.1) mEq/L Chloride 102 (98-107) mEq/L Carbon Dioxide 22 (21-32) mEq/L Anion Gap 16.4 H (5-15) BUN 8 (7-18) mg/dL Creatinine 0.9 (0.7-1.3) mg/dL Est Cr Clr Drug Dosing 90.24 mL/min Estimated GFR (MDRD) > 60 (>60) mL/min BUN/Creatinine Ratio 8.9 L (14-18) Glucose 331 H (74-106) mg/dL POC Glucose 212 H 186 H (70-105) mg/dL Hemoglobin A1c (4.50-6.20) % Calcium 7.8 L (8.5-10.1) mg/dL Magnesium (1.8-2.4) mg/dl Total Bilirubin (0.2-1.0) mg/dL AST (15-37) U/L ALT (16-63) U/L Alkaline Phosphatase (46-116) U/L C-Reactive Protein (<1.0) mg/dL Total Protein (6.4-8.2) g/dl Albumin (3.4-5.0) g/dl Globulin gm/dL Albumin/Globulin Ratio (1-2) Urine Color (Yellow) Urine Appearance (Clear) Urine pH (5.0-8.0) Ur Specific Oneco (1.005-1.030) Urine Protein (Negative) Urine Glucose (UA) (Negative) Urine Ketones (Negative) Urine Occult Blood (Negative) Urine Nitrite (Negative) Urine Bilirubin (Negative) Urine Urobilinogen (0.2-1.0) Ur Leukocyte Esterase (Negative) Urine RBC (0-5) /hpf Urine WBC (0-5) /hpf Ur Squamous Epith Cells (0-5) /hpf Urine Bacteria (FEW) /hpf Urine Mucus (FEW) /hpf Ketones (0.0-0.3) mM C.difficile 027-NAP1-B1 C. difficile Tox (PCR) 07/20/19 07/20/19 07/20/19 Range/Units 05:20 05:20 05:21 WBC 9.20 H (4.23-9.07) K/mm3 RBC 3.94 L (4.63-6.08) M/mm3 Hgb 12.0 L D (13.7-17.5) gm/L Hct 33.8 L (40.1-51.0) % MCV 85.8 (79.0-92.2) fl MCH 30.5 (25.7-32.2) pg MCHC 35.5 (32.2-35.5) g/dl RDW Std Deviation 36.8 (35.1-43.9) fL Plt Count 323 (163-337) K/mm3 MPV 10.0 (9.4-12.3) fl Neut % (Auto) 33.4 L (34.0-67.9) % Lymph % (Auto) 48.2 (21.8-53.1) % [place] % (Auto) 11.3 (5.3-12.2) % Eos % (Auto) 5.9 (0.8-7.0) Baso % (Auto) 0.8 (0.1-1.2) % Neut # (Auto) 3.08 (1.78-5.38) K/mm3 Lymph # (Auto) 4.43 H (1.32-3.57) K/mm3 [place] # (Auto) 1.04 H (0.30-0.82) K/mm3 Eos # (Auto) 0.54 (0.04-0.54) K/mm3 Baso # (Auto) 0.07 (0.01-0.08) K/mm3 Neutrophils % (Manual) (40-60) % Band Neutrophils % (0-10) % Lymphocytes % (Manual) (20-40) % Atypical Lymphs % % Monocytes % (Manual) (2-10) % Eosinophils % (Manual) (0.8-7.0) % Basophils % (Manual) (0.2-1.2) Platelet Estimate RBC Morph Comment Puncture Site ABG pH (7.35-7.45) ABG pCO2 (35.0-45.0) mmHg ABG pO2 (80.0-100.0) mmHg ABG HCO3 (22.0-26.0) meq/L ABG O2 Saturation (96.0-97.0) % ABG Base Excess (-2-2.0) Fernando Test A-a Gradient mmHg O2 Delivery Device FiO2 (21.00-100.00) % Sodium 138 (136-145) mEq/L Potassium 4.4 (3.5-5.1) mEq/L Chloride 107 (98-107) mEq/L Carbon Dioxide 23 (21-32) mEq/L Anion Gap 12.4 (5-15) BUN 7 (7-18) mg/dL Creatinine 0.5 L (0.7-1.3) mg/dL Est Cr Clr Drug Dosing 164.79 mL/min Estimated GFR (MDRD) > 60 (>60) mL/min BUN/Creatinine Ratio 14.0 (14-18) Glucose 195 H (74-106) mg/dL POC Glucose 198 H (70-105) mg/dL Hemoglobin A1c (4.50-6.20) % Calcium 7.6 L (8.5-10.1) mg/dL Magnesium 1.5 L (1.8-2.4) mg/dl Total Bilirubin 0.3 (0.2-1.0) mg/dL AST 15 (15-37) U/L ALT 30 (16-63) U/L Alkaline Phosphatase 107 (46-116) U/L C-Reactive Protein (<1.0) mg/dL Total Protein 4.7 L (6.4-8.2) g/dl Albumin 2.2 L (3.4-5.0) g/dl Globulin 2.5 gm/dL Albumin/Globulin Ratio 0.9 L (1-2) Urine Color (Yellow) Urine Appearance (Clear) Urine pH (5.0-8.0) Ur Specific Oneco (1.005-1.030) Urine Protein (Negative) Urine Glucose (UA) (Negative) Urine Ketones (Negative) Urine Occult Blood (Negative) Urine Nitrite (Negative) Urine Bilirubin (Negative) Urine Urobilinogen (0.2-1.0) Ur Leukocyte Esterase (Negative) Urine RBC (0-5) /hpf Urine WBC (0-5) /hpf Ur Squamous Epith Cells (0-5) /hpf Urine Bacteria (FEW) /hpf Urine Mucus (FEW) /hpf Ketones (0.0-0.3) mM C.difficile 027-NAP1-B1 C. difficile Tox (PCR) 07/20/19 07/20/19 Range/Units 06:15 07:51 WBC (4.23-9.07) K/mm3 RBC (4.63-6.08) M/mm3 Hgb (13.7-17.5) gm/L Hct (40.1-51.0) % MCV (79.0-92.2) fl MCH (25.7-32.2) pg MCHC (32.2-35.5) g/dl RDW Std Deviation (35.1-43.9) fL Plt Count (163-337) K/mm3 MPV (9.4-12.3) fl Neut % (Auto) (34.0-67.9) % Lymph % (Auto) (21.8-53.1) % [place] % (Auto) (5.3-12.2) % Eos % (Auto) (0.8-7.0) Baso % (Auto) (0.1-1.2) % Neut # (Auto) (1.78-5.38) K/mm3 Lymph # (Auto) (1.32-3.57) K/mm3 [place] # (Auto) (0.30-0.82) K/mm3 Eos # (Auto) (0.04-0.54) K/mm3 Baso # (Auto) (0.01-0.08) K/mm3 Neutrophils % (Manual) (40-60) % Band Neutrophils % (0-10) % Lymphocytes % (Manual) (20-40) % Atypical Lymphs % % Monocytes % (Manual) (2-10) % Eosinophils % (Manual) (0.8-7.0) % Basophils % (Manual) (0.2-1.2) Platelet Estimate RBC Morph Comment Puncture Site ABG pH (7.35-7.45) ABG pCO2 (35.0-45.0) mmHg ABG pO2 (80.0-100.0) mmHg ABG HCO3 (22.0-26.0) meq/L ABG O2 Saturation (96.0-97.0) % ABG Base Excess (-2-2.0) Fernando Test A-a Gradient mmHg O2 Delivery Device FiO2 (21.00-100.00) % Sodium (136-145) mEq/L Potassium (3.5-5.1) mEq/L Chloride (98-107) mEq/L Carbon Dioxide (21-32) mEq/L Anion Gap (5-15) BUN (7-18) mg/dL Creatinine (0.7-1.3) mg/dL Est Cr Clr Drug Dosing mL/min Estimated GFR (MDRD) (>60) mL/min BUN/Creatinine Ratio (14-18) Glucose (74-106) mg/dL POC Glucose 184 H 201 H (70-105) mg/dL Hemoglobin A1c (4.50-6.20) % Calcium (8.5-10.1) mg/dL Magnesium (1.8-2.4) mg/dl Total Bilirubin (0.2-1.0) mg/dL AST (15-37) U/L ALT (16-63) U/L Alkaline Phosphatase (46-116) U/L C-Reactive Protein (<1.0) mg/dL Total Protein (6.4-8.2) g/dl Albumin (3.4-5.0) g/dl Globulin gm/dL Albumin/Globulin Ratio (1-2) Urine Color (Yellow) Urine Appearance (Clear) Urine pH (5.0-8.0) Ur Specific Oneco (1.005-1.030) Urine Protein (Negative) Urine Glucose (UA) (Negative) Urine Ketones (Negative) Urine Occult Blood (Negative) Urine Nitrite (Negative) Urine Bilirubin (Negative) Urine Urobilinogen (0.2-1.0) Ur Leukocyte Esterase (Negative) Urine RBC (0-5) /hpf Urine WBC (0-5) /hpf Ur Squamous Epith Cells (0-5) /hpf Urine Bacteria (FEW) /hpf Urine Mucus (FEW) /hpf Ketones (0.0-0.3) mM C.difficile 027-NAP1-B1 C. difficile Tox (PCR) SCOTT Results - Last 24 hrs: Microbiology 07/19/19 22:33 Stool for WBCs - Final Stool / Feces Med Orders - Current: Current Medications Discontinued Medications Acetaminophen (Tylenol) 650 mg PO Q4H PRN PRN Reason: Pain (Mild 1-3)/fever Enoxaparin Sodium (Lovenox) 40 mg SUBCUT DAILY SRINIVAS Last Admin: 07/20/19 09:08 Dose: Not Given Sodium Chloride (Normal Saline) 1,000 mls @ 999 mls/hr IV ONETIME ONE Stop: 07/19/19 23:18 Last Admin: 07/19/19 22:45 Dose: 999 mls/hr Sodium Chloride (Normal Saline) 1,000 mls @ 999 mls/hr IV ONETIME ONE Stop: 07/20/19 00:14 Last Admin: 07/19/19 23:42 Dose: 999 mls/hr Insulin Human Regular 100 unit (/ Sodium Chloride) 100 mls @ 5.89 mls/hr IV TITRATE SRINIVAS; Protocol Last Titration: 07/20/19 02:55 Dose: 0 units/kg/hr, 0 mls/hr Potassium Chloride/Sodium Chloride (Normal Saline With 20 Meq Kcl) 1,000 mls @ 250 mls/hr IV ASDIRECTED [facility] Last Admin: 07/20/19 05:31 Dose: 250 mls/hr Insulin Glargine (Lantus) 36 unit SUBCUT DAILY [facility] Last Admin: 07/20/19 09:08 Dose: Not Given Insulin Human Lispro (Humalog) 12 unit SUBCUT TIDAC [facility] Last Admin: 07/20/19 10:56 Dose: 12 units Insulin Human Lispro (Humalog) 0 unit SUBCUT QIDACANDBED [facility]; Protocol Last Admin: 07/20/19 10:55 Dose: 2 units Insulin Human Regular (Humulin R) 5 unit IV ONETIME ONE Stop: 07/19/19 23:16 Last Admin: 07/20/19 00:04 Dose: Not Given Insulin Human Regular (Humulin R) 5 unit SUBCUT NOW STA Stop: 07/19/19 23:28 Last Admin: 07/20/19 00:05 Dose: 5 units Loperamide HCl (Imodium) 4 mg PO ONETIME ONE Stop: 07/19/19 23:13 Last Admin: 07/19/19 23:23 Dose: 4 mg Ondansetron HCl (Zofran Odt) 4 mg PO Q4H PRN PRN Reason: nausea, able to take PO Potassium Chloride (Klor-Con M20) 40 meq PO ONETIME ONE Stop: 07/19/19 23:12 Last Admin: 07/19/19 23:23 Dose: 40 meq Potassium Chloride (Klor-Con M20) 40 meq PO ONETIME ONE Stop: 07/20/19 06:57 Last Admin: 07/20/19 07:53 Dose: 40 meq Sodium Chloride (Saline Flush) 10 ml FLUSH ASDIRECTED PRN PRN Reason: Keep Vein Open Last Admin: 07/19/19 22:45 Dose: 10 ml Vancomycin HCl (Vancomycin) 125 mg PO QID [facility] Last Admin: 07/20/19 01:30 Dose: Not Given Vancomycin HCl (Vancomycin 50 Mg/Ml Soln) 125 mg PO QID [facility] Last Admin: 07/20/19 08:05 Dose: 125 mg Vancomycin HCl (Vancomycin 50 Mg/Ml Soln) 125 mg PO ONETIME ONE Stop: 07/20/19 02:01 Last Admin: 07/20/19 01:36 Dose: 125 mg - Exam Quality Assessment: Denies: Supplemental Oxygen General: Reports: Alert, Oriented HEENT: Reports: Pupils Equal, Pupils Reactive Neck: Reports: Supple Lungs: Reports: Clear to Auscultation, Normal Respiratory Effort Cardiovascular: Reports: Regular Rate, Regular Rhythm GI/Abdominal Exam: Normal Bowel Sounds, Soft, Non-Tender, No Organomegaly, No Distention Back Exam: Reports: Normal Inspection, Full Range of Motion Extremities: Normal Inspection, Normal Range of Motion, Non-Tender, No Pedal Edema Skin: Reports: Warm
== END 2019-07-20 11:30 | disposition home or self-care (01) | DRG 638 ==
LOC: JD.ED 20:17 → JD.ICU 07-20
PROVIDERS: ADMIT Family Medicine; ATTEND Family Medicine
DX: E11.00 Type 2 diabetes mellitus with hyperosmolarity without nonketotic hyperglycemic-hyperosmolar coma (NKHHC) (principal); A04.72 Enterocolitis due to Clostridium difficile, not specified as recurrent; F17.210 Nicotine dependence, cigarettes, uncomplicated; Z79.4 Long term (current) use of insulin
CPT/HCPCS: 36415; 36600; 80048; 80053; 81001; 82009; 82803; 82947; 82962; 83036; 83735; 85007; 85025; 85027; 86140; 87046; 87427; 87493; 89055; 96360; 99285-25; A9270-GY; J1650; J1815-GY; J3480; J7030; J7040

== ENCOUNTER 2019-07-24 22:04 | Inpatient (IN) | payer MEDICAID ==
[2019-07-24] MEDS ORDERED: Dicyclomine 10 MG Cap PO ONE (23:41)
[2019-07-24] MEDS ORDERED: Lactated Ringers 1,000 ML IV SCH (23:45)
--- NOTE | 2019-07-24 23:47 | EDM.PDOC ---
<LuizFabrizio Sybil - Last Filed: 07/25/19 08:11> ED HPI GENERAL MEDICAL PROBLEM - General Chief Complaint: Gastrointestinal Problem Stated Complaint: DIARRHEA/RASH Time Seen by Provider: 07/24/19 23:42 - Related Data Allergies Allergy/AdvReac Type Severity Reaction Status Date / Time No Known Allergies Allergy Verified 06/08/19 22:48 Home Meds: Home Meds Insulin Glargine,Hum.Rec.Anlog [Lantus Solostar] 36 unit SQ DAILY 11/06/17 [ History] Insulin Lispro [Humalog Kwikpen U-200] 1 unit SUBCUT ASDIRECTED 11/06/17 [ History] Vancomycin [Vancomycin 50 MG/ML Soln] 125 mg PO QID bottle 07/20/19 [Rx] Course - Vital Signs Last Recorded V/S: Last Vital Signs Temp 36.8 C 07/25/19 15:21 Pulse 103 H 07/25/19 15:21 Resp 16 07/25/19 15:21 BP 129/89 07/25/19 15:21 Pulse Ox 96 07/25/19 15:21 - Orders/Labs/Meds Orders: Active Orders 24 hr Category Date Time Status Patient Status [ADT] Stat ADT 07/25/19 09:22 Active HEPATITIS B SURFACE AG [CHEM] Stat Lab 07/24/19 23:44 Received Lactated Ringers [Ringers, Lactated] 1,000 ml Med 07/25/19 08:15 Active IV ASDIRECTED Medication Orders Acetaminophen (Tylenol) 650 mg PO Q4H PRN PRN Reason: Pain (Mild 1-3)/fever Albuterol/Ipratropium (Duoneb 3.0-0.5 Mg/3 Ml) 3 ml NEB Q4H PRN PRN Reason: Shortness Of Breath/wheezing Dextrose/Water (Dextrose 50% In Water) 50 ml IVPUSH ASDIRECTED PRN PRN Reason: Hyperglycemia Hydrocortisone (Hydrocortisone 1% Crm) 0 gm TOP QID PRN PRN Reason: irritation Last Admin: 07/25/19 12:50 Dose: 1 applic Hydromorphone HCl (Dilaudid) 0.5 mg IVPUSH Q2H PRN PRN Reason: Pain (severe 7-10) Lactated Ringer's (Ringers, Lactated) 1,000 mls @ 125 mls/hr IV ASDIRECTED COUNT INCLUDES THE [facility] Last Admin: 07/25/19 11:04 Dose: 125 mls/hr Promethazine HCl 6.25 mg/ (Sodium Chloride) 50.25 mls @ 100 mls/hr IV Q6H PRN PRN Reason: Nausea/Vomiting Insulin Glargine (Lantus) 36 unit SUBCUT DAILY COUNT INCLUDES THE [facility] Insulin Human Lispro (Humalog) 0 unit SUBCUT QIDACANDBED COUNT INCLUDES THE [facility]; Protocol Last Admin: 07/25/19 16:47 Dose: 8 units Admin: 07/25/19 16:24 Dose: 4 units Admin: 07/25/19 12:10 Dose: 10 units Ketorolac Tromethamine (Toradol) 30 mg IV Q6H PRN PRN Reason: Pain (moderate 4-6) Lorazepam (Ativan) 1 mg IV Q6H PRN PRN Reason: Anxiety Nicotine Polacrilex (Nicorelief) 4 mg CHEW Q2H PRN PRN Reason: withdraw symptoms from tobacco Last Admin: 07/25/19 17:32 Dose: 4 mg Admin: 07/25/19 12:46 Dose: 4 mg Ondansetron HCl (Zofran) 4 mg IV Q6H PRN PRN Reason: Nausea/Vomiting Oxycodone HCl (Oxycodone) 5 mg PO Q4H PRN PRN Reason: Pain (moderate 4-6) Temazepam (Restoril) 15 mg PO BEDTIME PRN PRN Reason: Sleep Vancomycin HCl (Vancomycin) 125 mg PO QID COUNT INCLUDES THE [facility] Last Admin: 07/25/19 16:19 Dose: 125 mg Admin: 07/25/19 14:47 Dose: 125 mg Admin: 07/25/19 10:42 Dose: 125 mg Witch Debra (Tucks) 1 pad TOP ASDIRECTED PRN PRN Reason: rectal pain Last Admin: 07/25/19 11:34 Dose: 1 pad Labs: Laboratory Tests 07/24/19 07/24/19 07/24/19 Range/Units 22:55 22:55 22:55 WBC 10.59 H (4.23-9.07) K/mm3 RBC 4.16 L (4.63-6.08) M/mm3 Hgb 12.9 L (13.7-17.5) gm/L Hct 36.7 L (40.1-51.0) % MCV 88.2 (79.0-92.2) fl MCH 31.0 (25.7-32.2) pg MCHC 35.1 (32.2-35.5) g/dl RDW Std Deviation 39.5 (35.1-43.9) fL Plt Count 349 H (163-337) K/mm3 MPV 9.3 L (9.4-12.3) fl Neut % (Auto) Cancelled Lymph % (Auto) Cancelled [place] % (Auto) Cancelled Eos % (Auto) Cancelled Baso % (Auto) Cancelled Neut # (Auto) Cancelled Lymph # (Auto) Cancelled [place] # (Auto) Cancelled Eos # (Auto) Cancelled Baso # (Auto) Cancelled Neutrophils % (Manual) 50 (40-60) % Band Neutrophils % 3 (0-10) % Lymphocytes % (Manual) 32 (20-40) % Atypical Lymphs % 0 % Monocytes % (Manual) 5 (2-10) % Eosinophils % (Manual) 9 H (0.8-7.0) % Basophils % (Manual) 1 (0.2-1.2) Manual Slide Review Cancelled Platelet Estimate Adequate Plt Morphology Comment Normal RBC Morph Comment Normal Sodium 133 L (136-145) mEq/L Potassium 4.3 (3.5-5.1) mEq/L Chloride 97 L (98-107) mEq/L Carbon Dioxide 26 (21-32) mEq/L Anion Gap 14.3 (5-15) BUN 14 (7-18) mg/dL Creatinine 0.8 (0.7-1.3) mg/dL Est Cr Clr Drug Dosing 101.35 mL/min Estimated GFR (MDRD) > 60 (>60) mL/min BUN/Creatinine Ratio 17.5 (14-18) Glucose 676 H* (74-106) mg/dL POC Glucose (70-105) mg/dL Serum Osmolality 314 H (280-300) mosm/kg Lactic Acid (0.4-2.0) mmol/L Calcium 8.3 L (8.5-10.1) mg/dL Magnesium 1.7 L (1.8-2.4) mg/dl Total Bilirubin 0.6 (0.2-1.0) mg/dL AST 31 (15-37) U/L ALT 90 H (16-63) U/L Alkaline Phosphatase 197 H (46-116) U/L C-Reactive Protein < 0.2 (<1.0) mg/dL Total Protein 5.9 L (6.4-8.2) g/dl Albumin 2.8 L (3.4-5.0) g/dl Globulin 3.1 gm/dL Albumin/Globulin Ratio 0.9 L (1-2) Urine Color (Yellow) Urine Appearance (Clear) Urine pH (5.0-8.0) Ur Specific [place] (1.005-1.030) Urine Protein (Negative) Urine Glucose (UA) (Negative) Urine Ketones (Negative) Urine Occult Blood (Negative) Urine Nitrite (Negative) Urine Bilirubin (Negative) Urine Urobilinogen (0.2-1.0) Ur Leukocyte Esterase (Negative) Urine RBC (0-5) /hpf Urine WBC (0-5) /hpf Ur Epithelial Cells (0-5) /hpf Urine Bacteria (FEW) /hpf Urine Mucus (FEW) /hpf Ketones (0.0-0.3) mM Hepatitis C Antibody (NEGATIVE) HIV-1 Ab Rapid Screen (NEGATIVE) 07/24/19 07/25/19 07/25/19 Range/Units 22:55 00:06 00:06 WBC (4.23-9.07) K/mm3 RBC (4.63-6.08) M/mm3 Hgb (13.7-17.5) gm/L Hct (40.1-51.0) % MCV (79.0-92.2) fl MCH (25.7-32.2) pg MCHC (32.2-35.5) g/dl RDW Std Deviation (35.1-43.9) fL Plt Count (163-337) K/mm3 MPV (9.4-12.3) fl Neut % (Auto) Lymph % (Auto) [place] % (Auto) Eos % (Auto) Baso % (Auto) Neut # (Auto) Lymph # (Auto) [place] # (Auto) Eos # (Auto) Baso # (Auto) Neutrophils % (Manual) (40-60) % Band Neutrophils % (0-10) % Lymphocytes % (Manual) (20-40) % Atypical Lymphs % % Monocytes % (Manual) (2-10) % Eosinophils % (Manual) (0.8-7.0) % Basophils % (Manual) (0.2-1.2) Manual Slide Review Platelet Estimate Plt Morphology Comment RBC Morph Comment Sodium (136-145) mEq/L Potassium (3.5-5.1) mEq/L Chloride (98-107) mEq/L Carbon Dioxide (21-32) mEq/L Anion Gap (5-15) BUN (7-18) mg/dL Creatinine (0.7-1.3) mg/dL Est Cr Clr Drug Dosing mL/min Estimated GFR (MDRD) (>60) mL/min BUN/Creatinine Ratio (14-18) Glucose (74-106) mg/dL POC Glucose (70-105) mg/dL Serum Osmolality (280-300) mosm/kg Lactic Acid 1.3 (0.4-2.0) mmol/L Calcium (8.5-10.1) mg/dL Magnesium (1.8-2.4) mg/dl Total Bilirubin (0.2-1.0) mg/dL AST (15-37) U/L ALT (16-63) U/L Alkaline Phosphatase (46-116) U/L C-Reactive Protein (<1.0) mg/dL Total Protein (6.4-8.2) g/dl Albumin (3.4-5.0) g/dl Globulin gm/dL Albumin/Globulin Ratio (1-2) Urine Color (Yellow) Urine Appearance (Clear) Urine pH (5.0-8.0) Ur Specific [place] (1.005-1.030) Urine Protein (Negative) Urine Glucose (UA) (Negative) Urine Ketones (Negative) Urine Occult Blood (Negative) Urine Nitrite (Negative) Urine Bilirubin (Negative) Urine Urobilinogen (0.2-1.0) Ur Leukocyte Esterase (Negative) Urine RBC (0-5) /hpf Urine WBC (0-5) /hpf Ur Epithelial Cells (0-5) /hpf Urine Bacteria (FEW) /hpf Urine Mucus (FEW) /hpf Ketones 0.96 (0.0-0.3) mM Hepatitis C Antibody Negative (NEGATIVE) HIV-1 Ab Rapid Screen Negative (NEGATIVE) 07/25/19 07/25/19 07/25/19 Range/Units 01:29 01:30 02:40 WBC (4.23-9.07) K/mm3 RBC (4.63-6.08) M/mm3 Hgb (13.7-17.5) gm/L Hct (40.1-51.0) % MCV (79.0-92.2) fl MCH (25.7-32.2) pg MCHC (32.2-35.5) g/dl RDW Std Deviation (35.1-43.9) fL Plt Count (163-337) K/mm3 MPV (9.4-12.3) fl Neut % (Auto) Lymph % (Auto) [place] % (Auto) Eos % (Auto) Baso % (Auto) Neut # (Auto) Lymph # (Auto) [place] # (Auto) Eos # (Auto) Baso # (Auto) Neutrophils % (Manual) (40-60) % Band Neutrophils % (0-10) % Lymphocytes % (Manual) (20-40) % Atypical Lymphs % % Monocytes % (Manual) (2-10) % Eosinophils % (Manual) (0.8-7.0) % Basophils % (Manual) (0.2-1.2) Manual Slide Review Platelet Estimate Plt Morphology Comment RBC Morph Comment Sodium (136-145) mEq/L Potassium (3.5-5.1) mEq/L Chloride (98-107) mEq/L Carbon Dioxide (21-32) mEq/L Anion Gap (5-15) BUN (7-18) mg/dL Creatinine (0.7-1.3) mg/dL Est Cr Clr Drug Dosing mL/min Estimated GFR (MDRD) (>60) mL/min BUN/Creatinine Ratio (14-18) Glucose (74-106) mg/dL POC Glucose 371 H 291 H (70-105) mg/dL Serum Osmolality (280-300) mosm/kg Lactic Acid (0.4-2.0) mmol/L Calcium (8.5-10.1) mg/dL Magnesium (1.8-2.4) mg/dl Total Bilirubin (0.2-1.0) mg/dL AST (15-37) U/L ALT (16-63) U/L Alkaline Phosphatase (46-116) U/L C-Reactive Protein (<1.0) mg/dL Total Protein (6.4-8.2) g/dl Albumin (3.4-5.0) g/dl Globulin gm/dL Albumin/Globulin Ratio (1-2) Urine Color Light yellow (Yellow) Urine Appearance Clear (Clear) Urine pH 6.0 (5.0-8.0) Ur Specific [place] 1.010 (1.005-1.030) Urine Protein Negative (Negative) Urine Glucose (UA) 2+ H (Negative) Urine Ketones 1+ H (Negative) Urine Occult Blood Negative (Negative) Urine Nitrite Negative (Negative) Urine Bilirubin Negative (Negative) Urine Urobilinogen 0.2 (0.2-1.0) Ur Leukocyte Esterase Negative (Negative) Urine RBC 0-5 (0-5) /hpf Urine WBC Not seen (0-5) /hpf Ur Epithelial Cells Not seen (0-5) /hpf Urine Bacteria Rare (FEW) /hpf Urine Mucus Not seen (FEW) /hpf Ketones (0.0-0.3) mM Hepatitis C Antibody (NEGATIVE) HIV-1 Ab Rapid Screen (NEGATIVE) 07/25/19 07/25/19 07/25/19 Range/Units 03:35 06:02 08:11 WBC (4.23-9.07) K/mm3 RBC (4.63-6.08) M/mm3 Hgb (13.7-17.5) gm/L Hct (40.1-51.0) % MCV (79.0-92.2) fl MCH (25.7-32.2) pg MCHC (32.2-35.5) g/dl RDW Std Deviation (35.1-43.9) fL Plt Count (163-337) K/mm3 MPV (9.4-12.3) fl Neut % (Auto) Lymph % (Auto) [place] % (Auto) Eos % (Auto) Baso % (Auto) Neut # (Auto) Lymph # (Auto) [place] # (Auto) Eos # (Auto) Baso # (Auto) Neutrophils % (Manual) (40-60) % Band Neutrophils % (0-10) % Lymphocytes % (Manual) (20-40) % Atypical Lymphs % % Monocytes % (Manual) (2-10) % Eosinophils % (Manual) (0.8-7.0) % Basophils % (Manual) (0.2-1.2) Manual Slide Review Platelet Estimate Plt Morphology Comment RBC Morph Comment Sodium (136-145) mEq/L Potassium (3.5-5.1) mEq/L Chloride (98-107) mEq/L Carbon Dioxide (21-32) mEq/L Anion Gap (5-15) BUN (7-18) mg/dL Creatinine (0.7-1.3) mg/dL Est Cr Clr Drug Dosing mL/min Estimated GFR (MDRD) (>60) mL/min BUN/Creatinine Ratio (14-18) Glucose (74-106) mg/dL POC Glucose 215 H 303 H 298 H (70-105) mg/dL Serum Osmolality (280-300) mosm/kg Lactic Acid (0.4-2.0) mmol/L Calcium (8.5-10.1) mg/dL Magnesium (1.8-2.4) mg/dl Total Bilirubin (0.2-1.0) mg/dL AST (15-37) U/L ALT (16-63) U/L Alkaline Phosphatase (46-116) U/L C-Reactive Protein (<1.0) mg/dL Total Protein (6.4-8.2) g/dl Albumin (3.4-5.0) g/dl Globulin gm/dL Albumin/Globulin Ratio (1-2) Urine Color (Yellow) Urine Appearance (Clear) Urine pH (5.0-8.0) Ur Specific [place] (1.005-1.030) Urine Protein (Negative) Urine Glucose (UA) (Negative) Urine Ketones (Negative) Urine Occult Blood (Negative) Urine Nitrite (Negative) Urine Bilirubin (Negative) Urine Urobilinogen (0.2-1.0) Ur Leukocyte Esterase (Negative) Urine RBC (0-5) /hpf Urine WBC (0-5) /hpf Ur Epithelial Cells (0-5) /hpf Urine Bacteria (FEW) /hpf Urine Mucus (FEW) /hpf Ketones (0.0-0.3) mM Hepatitis C Antibody (NEGATIVE) HIV-1 Ab Rapid Screen (NEGATIVE) 07/25/19 Range/Units 08:26 WBC (4.23-9.07) K/mm3 RBC (4.63-6.08) M/mm3 Hgb (13.7-17.5) gm/L Hct (40.1-51.0) % MCV (79.0-92.2) fl MCH (25.7-32.2) pg MCHC (32.2-35.5) g/dl RDW Std Deviation (35.1-43.9) fL Plt Count (163-337) K/mm3 MPV (9.4-12.3) fl Neut % (Auto) Lymph % (Auto) [place] % (Auto) Eos % (Auto) Baso % (Auto) Neut # (Auto) Lymph # (Auto) [place] # (Auto) Eos # (Auto) Baso # (Auto) Neutrophils % (Manual) (40-60) % Band Neutrophils % (0-10) % Lymphocytes % (Manual) (20-40) % Atypical Lymphs % % Monocytes % (Manual) (2-10) % Eosinophils % (Manual) (0.8-7.0) % Basophils % (Manual) (0.2-1.2) Manual Slide Review Platelet Estimate Plt Morphology Comment RBC Morph Comment Sodium 139 (136-145) mEq/L Potassium 4.1 (3.5-5.1) mEq/L Chloride 103 (98-107) mEq/L Carbon Dioxide 27 (21-32) mEq/L Anion Gap 13.1 (5-15) BUN 9 (7-18) mg/dL Creatinine 0.6 L (0.7-1.3) mg/dL Est Cr Clr Drug Dosing 135.13 mL/min Estimated GFR (MDRD) > 60 (>60) mL/min BUN/Creatinine Ratio 15.0 (14-18) Glucose 289 H (74-106) mg/dL POC Glucose (70-105) mg/dL Serum Osmolality (280-300) mosm/kg Lactic Acid (0.4-2.0) mmol/L Calcium 8.5 (8.5-10.1) mg/dL Magnesium (1.8-2.4) mg/dl Total Bilirubin (0.2-1.0) mg/dL AST (15-37) U/L ALT (16-63) U/L Alkaline Phosphatase (46-116) U/L C-Reactive Protein (<1.0) mg/dL Total Protein (6.4-8.2) g/dl Albumin (3.4-5.0) g/dl Globulin gm/dL Albumin/Globulin Ratio (1-2) Urine Color (Yellow) Urine Appearance (Clear) Urine pH (5.0-8.0) Ur Specific [place] (1.005-1.030) Urine Protein (Negative) Urine Glucose (UA) (Negative) Urine Ketones (Negative) Urine Occult Blood (Negative) Urine Nitrite (Negative) Urine Bilirubin (Negative) Urine Urobilinogen (0.2-1.0) Ur Leukocyte Esterase (Negative) Urine RBC (0-5) /hpf Urine WBC (0-5) /hpf Ur Epithelial Cells (0-5) /hpf Urine Bacteria (FEW) /hpf Urine Mucus (FEW) /hpf Ketones (0.0-0.3) mM Hepatitis C Antibody (NEGATIVE) HIV-1 Ab Rapid Screen (NEGATIVE) Meds: Medications Generic Name Dose Route Start Last Admin Trade Name Freq PRN Reason Stop Dose Admin Acetaminophen 650 mg 07/25/19 09:54 Tylenol PO Q4H PRN Pain (Mild 1-3)/fever Albuterol/Ipratropium 3 ml 07/25/19 09:54 Duoneb 3.0-0.5 Mg/3 Ml NEB Q4H PRN Shortness Of Breath/wheezing Dextrose/Water 50 ml 07/25/19 11:17 Dextrose 50% In Water IVPUSH ASDIRECTED PRN Hyperglycemia Hydrocortisone 0 gm 07/25/19 11:17 07/25/19 12:50 Hydrocortisone 1% Crm TOP 1 applic QID PRN Administration irritation Hydromorphone HCl 0.5 mg 07/25/19 09:54 Dilaudid IVPUSH Q2H PRN Pain (severe 7-10) Lactated Ringer's 1,000 mls @ 125 mls/hr 07/25/19 08:15 07/25/19 11:04 Ringers, Lactated IV 125 mls/hr ASDIRECTED SRINIVAS Administration Promethazine HCl 6.25 mg/ 50.25 mls @ 100 mls/hr 07/25/19 09:54 Sodium Chloride IV Q6H PRN Nausea/Vomiting Insulin Glargine 36 unit 07/26/19 09:00 Lantus SUBCUT DAILY SRINIVAS Insulin Human Lispro 0 unit 07/25/19 12:00 07/25/19 16:47 Humalog SUBCUT 8 units QIDACANDBED SRINIVAS Administration Protocol Ketorolac Tromethamine 30 mg 07/25/19 09:54 Toradol IV Q6H PRN Pain (moderate 4-6) Lorazepam 1 mg 07/25/19 09:54 Ativan IV Q6H PRN Anxiety Nicotine Polacrilex 4 mg 07/25/19 12:31 07/25/19 17:32 Nicorelief CHEW 4 mg Q2H PRN Administration withdraw symptoms from tobacco Ondansetron HCl 4 mg 07/25/19 09:54 Zofran IV Q6H PRN Nausea/Vomiting Oxycodone HCl 5 mg 07/25/19 09:54 Oxycodone PO Q4H PRN Pain (moderate 4-6) Temazepam 15 mg 07/25/19 09:54 Restoril PO BEDTIME PRN Sleep Vancomycin HCl 125 mg 07/25/19 10:30 07/25/19 16:19 Vancomycin PO 125 mg QID SRINIVAS Administration Witch Debra 1 pad 07/25/19 10:54 07/25/19 11:34 Tucks TOP 1 pad ASDIRECTED PRN Administration rectal pain Discontinued Medications Generic Name Dose Route Start Last Admin Trade Name Freq PRN Reason Stop Dose Admin Dicyclomine HCl 20 mg 07/24/19 23:41 07/24/19 23:54 Bentyl PO 07/24/19 23:42 20 mg ONETIME ONE Administration Lactated Ringer's 1,000 mls @ 500 mls/hr 07/24/19 23:45 07/25/19 00:14 Ringers, Lactated IV 500 mls/hr ASDIRECTED SRINIVAS Administration Insulin Human Regular 100 unit 100 mls @ 159.21 mls/hr 07/24/19 23:45 01:33 / Sodium Chloride IV Infused ASDIRECTED SRINIVAS Infusion 3 UNITS/KG/HR Metronidazole 500 mg/ Premix 100 mls @ 100 mls/hr 07/25/19 01:47 07/25/19 02: 08 IV 07/25/19 02:46 100 mls/hr ONETIME ONE Administration Insulin Human Regular 100 unit 100 mls @ 53.07 mls/hr 07/25/19 02:00 / Sodium Chloride IV TITRATE SRINIVAS Protocol 1 UNITS/KG/HR Lactated Ringer's 1,000 mls @ 500 mls/hr 07/25/19 02:15 07/25/19 03:19 Ringers, Lactated IV 500 mls/hr .BOLUS SRINVIAS Administration Insulin Glargine 36 unit 07/25/19 16:13 07/25/19 16:42 Lantus SUBCUT 07/25/19 16:14 36 units ONETIME ONE Administration Insulin Human Regular 4 unit 07/25/19 16:00 Humulin R SUBCUT BIDAC SRINIVAS Metronidazole 500 mg 07/25/19 05:55 07/25/19 06:04 Flagyl PO 07/25/19 05:56 500 mg ONETIME ONE Administration Non-Formulary Medication 1 unit 07/25/19 10:00 Insulin Lispro [Humalog Kwikpen U-200] SUBCUT ASDIRECTED SRINIVAS - Re-Assessments/Exams Free Text/Narrative Re-Assessment/Exam: 07/25/19 07:56 Did discuss the situation with the patient and the patient has had time to think about it he would like to go ahead and come back into the hospital. 07/25/19 08:11 Bed side glucose is 298 at this time. 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 History suggests she's been having chronic diarrhea with greater than 10 bowel movements per day for greater than 2 months. He was seen through the ED on July 19 and admitted to the hospital due to positive C. difficile enteritis. He denies being on any antibiotics recently. The patient has been insulin- dependent diabetic for 21 years. His blood sugar on last admission was 785 and required an insulin drip and was admitted to the intensive care unit. He has been started on oral liquid vancomycin 125 mg 4 times a day but states it seems to go right through mini is actually no better. On average he is having 15 stools per day. His blood tox and perianal tissues are excoriated and severely erythematous and painful to the point that he can even wipe after going. He appears incapable looking after himself at this point time. 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 He has been too ill to work for the last week. Blood sugars have been running around 200 to take 300 which is normal for him. On review of his last chart his hemoglobin A1c was 12.10. Indicating extremely poor control of his diabetes. He takes insulin Lantus 36 units daily in the morning and between 4 and 12 units with each meal of Humalog. He is on no other medications other than the vancomycin is listed above. He appears thin and suffering from malnutrition. At present he appears to be in a good deal of discomfort. He states the only position of comfort is lying on his stomach. Onset: Unknown/Unsure (History suggests chronic diarrhea for greater than 2 months) Duration: Chronic, Constant, Other (No better since starting oral vancomycin 4 days ago for Clostridium difficile enteritis.) Location: Reports: Abdomen (Chronic abdominal cramping and diarrhea. Frequent incontinence of stool within a depends.) Quality: Reports: Other (Diffuse stomach ache.) Severity: Severe (Diarrhea.) Improves with: Reports: None, Other (He states he eats he can usually have a bowel movement within 5 minutes.) Worsens with: Reports: Eating Context: Denies: Activity, Exercise, Lifting, Sick Contact, Trauma, Other Associated Symptoms: Reports: Fever/Chills, Malaise, Other (Weight loss). 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 (see below) (Only current prescribed medications) Rectal Pain Score (Numeric/FACES): 9 Past Medical History - Past Health History Medical/Surgical History: Denies Medical/Surgical History HEENT History: Reports: Impaired Vision Cardiovascular History: Reports: Hypertension Other Cardiovascular History: aunt states patient has been having blood pressure issues Respiratory History: Reports: None Gastrointestinal History: Reports: None Genitourinary History: Reports: None Musculoskeletal History: Reports: None Neurological History: Reports: None Psychiatric History: Reports: None Endocrine/Metabolic History: Reports: Diabetes, Type I Hematologic History: Reports: None Immunologic History: Reports: None Oncologic (Cancer) History: Reports: None Other Dermatologic History: has had foot infections - Infectious Disease History Infectious Disease History: Reports: None - Past Surgical History Head Surgeries/Procedures: Reports: None HEENT Surgical History: Reports: Oral Surgery Respiratory Surgical History: Reports: None Social & Family History - Family History Family Medical History: Noncontributory Cardiac: Reports: Aneurysm - Tobacco Use Years of Tobacco use: 10 Packs/Tins Daily: 1 - Caffeine Use Caffeine Use: Reports: Tea - Recreational Drug Use Recreational Drug Use: No - Living Situation & Occupation Living situation: Reports: Single 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 Denies: Fever HEENT: Reports: No Symptoms Respiratory: Reports: No Symptoms Cardiovascular: Reports: No Symptoms Endocrine: Reports: Fatigue, High Glucose GI/Abdominal: Reports: Diarrhea (Chronic severe watery diarrhea usually yellow brown in color sometimes small quantities usually 15-16 times per day without blood.), Stool Incontinence (Frequent stool incontinence.). Denies: Hematemesis , Hematochezia, Melena, Vomiting, Other : Reports: Frequency Musculoskeletal: Reports: No Symptoms Skin: Reports: Other (Multiple skin sores.) Neurological: Reports: Dizziness, Difficulty Walking, Weakness Psychiatric: Reports: No Symptoms (Due to weakness in his legs.) Hematologic/Lymphatic: Reports: No Symptoms Immunologic: Reports: No Symptoms ED EXAM, GI/ABD - Physical Exam Exam: See Below Exam Limited By: No Limitations General Appearance: Alert, WD/WN, Moderate Distress, Thin, Cachetic Eyes: Bilateral: Normal Appearance Throat/Mouth: Other (Tongue is mildly dry and coated) Head: Atraumatic, Normocephalic Neck: Normal Inspection, Supple, Non-Tender, Full Range of Motion. No: Carotid Bruit, Lymphadenopathy (L), Lymphadenopathy (R) Respiratory/Chest: Lungs Clear, Normal Breath Sounds, No Accessory Muscle Use, Chest Non-Tender, Respiratory Distress (Mild tachypnea) Cardiovascular: Normal Peripheral Pulses, No Gallop, No Murmur, No Rub, Tachycardia GI/Abdominal Exam: Tender, Abnormal Bowel Sounds (Mildly hyperactive bowel sounds all 4 quadrants.), Other (Scaphoid abdomen.). No: Guarding (Tender suprapubically and left lower quadrant), Rigid, Rebound (Male) Exam: No Hernia Rectal (Males) Exam: Other (Perianal tissues are extremely excoriated and erythematous from skin breakdown from chronic diarrhea.) Back Exam: Normal Inspection, Full Range of Motion. No: CVA Tenderness (L), CVA Tenderness (R) Extremities: Pedal Edema (Mild edema both lower extremities mostly dorsal feet and ankles.) Neurological: Alert, Oriented, CN II-XII Intact, Normal Cognition Psychiatric: Normal Affect, Normal Mood Skin Exam: Warm, Dry, Intact, Normal Color, No Rash Course - Radiology Interpretation Free Text/Narrative:: 29-year-old male presents the ED due to uncontrolled severe diarrhea secondary to Clostridium difficile enteritis diagnosed on July 19. He was admitted to the hospital for one day and some [place] left AMA or post discharge. He is a type I diabetic for 21 years and obviously has very poor diabetic control with a glycosylated protein of greater than 12.1 on last admission. Eats whatever he wants he does not follow a diabetic diet. Takes 36 units of insulin i.e. Lantus every morning and then Humalog anywhere between 4 and 12 units with each meal. He states whatever he eats now goes right through him within 5 minutes. He has been on vancomycin oral liquid 125 mg suspension 4 times a day since the time of discharge and he states is been compliant with it but he said no improvement in the diarrhea. C. difficile appears to be resistant to it. He was not tried on any Flagyl. At this point time he appears chronically ill and suffering malnutrition. Plan IV fluids-lactated Ringer's at open. Bentyl 20 mg by mouth for abdominal cramping. - Re-Assessments/Exams Free Text/Narrative Re-Assessment/Exam: 07/25/19 23:45: Labs reveal a total white count of 10.59 with 50% neutrophils 3 % band cells and 32% lymphocytes. Hemoglobin is 12.9 with hematocrit of 36.7. Platelet count 349,000. Sodium 133 with a potassium of 4.3. Chloride 97 with bicarbonate 26. And a gap is 14.3. BUN of 14. Creatinine is 0.8. GFR is greater than 60. BUN/creatinine ratio 17.5 glucose was 676. Serum osmolality 314. Lactic acid 1.3. Calcium was 8.3 with a magnesium slightly low at 1.7. Bilirubin is 0.6 with an AST of 31 and ALT of 90 mildly elevated suggestive of possible hepatitis C. Alk phosphatase is 197. C-reactive protein is less than 0.2. Total protein is low at 5.9 with an albumin fraction of 2.8. Serum ketones are elevated at 0.96. Hepatitis C antibody screen is negative HIV screen is negative. Due to her elevated blood sugar patient be started on insulin drip at 3 units an hour regular Humalog insulin. 07/25/19 01:38: Blood sugar reported to me now is down to 371. Insulin drip will be decreased to 1 unit per hour. 07/25/19 02:44 blood sugar now is down to 291. I will continue the insulin drip at 1 unit an hour for another hour or so. He requires the fluids to correct his ketosis. 07/25/19 03:36 blood sugar is now 231 therefore the insulin drip will be discontinued. Decision will have to be made as to whether or not the patient is to come back into the hospital to start oral metronidazole and after bring his C. difficile enteritis under control as it is out of control at present and aggravating his current blood sugars and dietary intake. 07/25/19 05:56 patient has had 3 loose stools when he first came into the ED but none since. He's been sleeping on and off most of the night. I asked him what he wanted to do versus i.e. stay in the hospital versus try things as an outpatient and he can make up his mind. I'm going to give the first dose of oral metronidazole 500 mg now. He will also repeat blood sugar done. 07/25/19 06:00 blood sugar is 303 at this time. Departure - Departure Time of Disposition: 10:00 Condition: Fair - Discharge Information *PRESCRIPTION DRUG MONITORING PROGRAM REVIEWED*: Not Applicable *COPY OF PRESCRIPTION DRUG MONITORING REPORT IN PATIENT VI: Not Applicable
[2019-07-25] MEDS ORDERED: metroNIDAZOLE/Normal Saline 500 MG in Premix Bag 1 BAG IV ONE (01:47)
[2019-07-25] MEDS ORDERED: Lactated Ringers 1,000 ML IV SCH (02:15)
[2019-07-25] MEDS ORDERED: metroNIDAZOLE 500 MG Tab PO ONE (05:55)
--- NOTE | 2019-07-25 09:41 | PCM.HP.2 ---
H&P History of Present Illness - General Date of Service: 07/25/19 Admit Problem/Dx: Admission Diagnosis/Problem Admission Diagnosis/Problem Clostridium difficile enterocolitis Source of Information: Patient, Old Records, Provider, RN Notes Reviewed History Limitations: Reports: No Limitations - History of Present Illness Initial Comments - Free Text/Narative: This is a 29 year old thin body built white male with past medical hx/o DM1 and Nicotine Dependence who presents to ED with complaints of severe watery diarrhea that has been going on for 2 months. He was admitted on 07/20/2019 and was diagnosed with C. Diff infection attributed to a recent antibiotic use for staph infection. He was discharged on the same day with oral vancomycin to take. However his symptoms never got better according to him so he came back today for further treatment. His initial work up in ED shows a CBC remarkable for WBC of 10.59, RBC of 4.16, Hgb of 12.9, Hct of 36.7, Platelet # of 349, and Eosinophils of 9%. His Chemistry is significant for Na of 133, Cl of 97, BS of 676, Serum Osm of 314, Ca of 8.3, Mg of 1.7, ALT of 90, Alk Phos of 197, Total protein of 5.9, and Albumin of 2.8. His UA is negative for UTI. Patient received initial treatment in ED before he was moved to the floor for further treatment. Rectal Pain Score (Numeric/FACES): 9 - Related Data Allergies/Adverse Reactions: Allergies Allergy/AdvReac Type Severity Reaction Status Date / Time No Known Allergies Allergy Verified 06/08/19 22:48 Home Medications: Home Meds Insulin Glargine,Hum.Rec.Anlog [Lantus Solostar] 36 unit SQ DAILY 11/06/17 [ History] Insulin Lispro [Humalog Kwikpen U-200] 1 unit SUBCUT ASDIRECTED 11/06/17 [ History] Vancomycin [Vancomycin 50 MG/ML Soln] 125 mg PO QID bottle 07/20/19 [Rx] Past Medical History - Past Health History Medical/Surgical History: Denies Medical/Surgical History HEENT History: Reports: Impaired Vision Cardiovascular History: Reports: Hypertension Other Cardiovascular History: aunt states patient has been having blood pressure issues Respiratory History: Reports: None Gastrointestinal History: Reports: None Genitourinary History: Reports: None Musculoskeletal History: Reports: None Neurological History: Reports: None Psychiatric History: Reports: None Endocrine/Metabolic History: Reports: Diabetes, Type I Hematologic History: Reports: None Immunologic History: Reports: None Oncologic (Cancer) History: Reports: None Other Dermatologic History: has had foot infections - Infectious Disease History Infectious Disease History: Reports: None - Past Surgical History Head Surgeries/Procedures: Reports: None HEENT Surgical History: Reports: Oral Surgery Respiratory Surgical History: Reports: None Social & Family History - Family History Family Medical History: Noncontributory Cardiac: Reports: Aneurysm - Tobacco Use Years of Tobacco use: 10 Packs/Tins Daily: 1 - Caffeine Use Caffeine Use: Reports: Tea - Recreational Drug Use Recreational Drug Use: No - Living Situation & Occupation Living situation: Reports: Single 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 Denies: Nausea, Vomiting Genitourinary: Reports: Other (scrotal pain) Musculoskeletal: Reports: No Symptoms Skin: Reports: No Symptoms Psychiatric: Denies: Depression, Mood Lability, Anxiety, Agitation, Cravings, Hallucinations, Suicidal Ideation, Hallucinations (Auditory) Neurological: Denies: Confusion, Difficulty Walking, Weakness, Gait Disturbance Exam - Exam Exam: See Below - Vital Signs Vital Signs: Last Vital Signs Temp Pulse 108 H 07/24/19 22:13 Resp 20 07/24/19 22:13 BP 141/103 H 07/24/19 22:13 Pulse Ox 99 07/24/19 22:13 Weight: 53.07 kg - Exam General: Alert, Oriented, Cooperative, Other (thin built) HEENT: Conjunctiva Clear, EACs Clear, EOMI, Hearing Intact, Mucosa Moist & Gonzales , Nares Patent, Normal Nasal Septum, Posterior Pharynx Clear, Pupils Equal, Pupils Reactive, TMs Clear Neck: Supple, Trachea Midline Lungs: Clear to Auscultation, Normal Respiratory Effort Cardiovascular: Regular Rate, Regular Rhythm GI/Abdominal Exam: Normal Bowel Sounds, Soft, Non-Tender, No Organomegaly, No Distention, No Abnormal Bruit, No Mass, Other (SubQ lipomas on abdomen) (Male) Exam: Circumcised, Scrotal Swelling, Other (left scrotal redness and irritation). No: Suprapubic Fullness, Testicular Tenderness (L), Urethral Discharge Rectal (Males) Exam: Other (shahriar-rectal: raw, red with excoriations) Back Exam: Normal Inspection, Full Range of Motion Extremities: Normal Inspection, Normal Range of Motion, Non-Tender, No Pedal Edema, Normal Capillary Refill Peripheral Pulses: 2+: Posterior Tibial (L), Posterior Tibial (R), Dorsalis Pedis (L), Dorsalis Pedis (R) Skin: Warm, Dry, Intact, Other (multiple skin tattoos) Skin Alteration Location (Drawings Not To Scale): 1 - b/l lower lateral abdomen: soft tissue growth and non-tender to palpation Neuro Extensive - Mental Status: Oriented x3, Normal Cognition, Memory Intact Neuro Extensive - Motor, Sensory, Reflexes: CN II-XII Intact (limited due to discomfort andpain with movement), Normal Gait Psychiatric: Alert, Normal Affect, Normal Mood - Patient Data Lab Results Last 24 hrs: Laboratory Results - last 24 hr 07/24/19 07/24/19 07/24/19 Range/Units 22:55 22:55 22:55 WBC 10.59 H (4.23-9.07) K/mm3 RBC 4.16 L (4.63-6.08) M/mm3 Hgb 12.9 L (13.7-17.5) gm/L Hct 36.7 L (40.1-51.0) % MCV 88.2 (79.0-92.2) fl MCH 31.0 (25.7-32.2) pg MCHC 35.1 (32.2-35.5) g/dl RDW Std Deviation 39.5 (35.1-43.9) fL Plt Count 349 H (163-337) K/mm3 MPV 9.3 L (9.4-12.3) fl Neut % (Auto) Cancelled Lymph % (Auto) Cancelled [place] % (Auto) Cancelled Eos % (Auto) Cancelled Baso % (Auto) Cancelled Neut # (Auto) Cancelled Lymph # (Auto) Cancelled [place] # (Auto) Cancelled Eos # (Auto) Cancelled Baso # (Auto) Cancelled Neutrophils % (Manual) 50 (40-60) % Band Neutrophils % 3 (0-10) % Lymphocytes % (Manual) 32 (20-40) % Atypical Lymphs % 0 % Monocytes % (Manual) 5 (2-10) % Eosinophils % (Manual) 9 H (0.8-7.0) % Basophils % (Manual) 1 (0.2-1.2) Manual Slide Review Cancelled Platelet Estimate Adequate Plt Morphology Comment Normal RBC Morph Comment Normal Sodium 133 L (136-145) mEq/L Potassium 4.3 (3.5-5.1) mEq/L Chloride 97 L (98-107) mEq/L Carbon Dioxide 26 (21-32) mEq/L Anion Gap 14.3 (5-15) BUN 14 (7-18) mg/dL Creatinine 0.8 (0.7-1.3) mg/dL Est Cr Clr Drug Dosing 101.35 mL/min Estimated GFR (MDRD) > 60 (>60) mL/min BUN/Creatinine Ratio 17.5 (14-18) Glucose 676 H* (74-106) mg/dL POC Glucose (70-105) mg/dL Serum Osmolality 314 H (280-300) mosm/kg Lactic Acid (0.4-2.0) mmol/L Calcium 8.3 L (8.5-10.1) mg/dL Magnesium 1.7 L (1.8-2.4) mg/dl Total Bilirubin 0.6 (0.2-1.0) mg/dL AST 31 (15-37) U/L ALT 90 H (16-63) U/L Alkaline Phosphatase 197 H (46-116) U/L C-Reactive Protein < 0.2 (<1.0) mg/dL Total Protein 5.9 L (6.4-8.2) g/dl Albumin 2.8 L (3.4-5.0) g/dl Globulin 3.1 gm/dL Albumin/Globulin Ratio 0.9 L (1-2) Urine Color (Yellow) Urine Appearance (Clear) Urine pH (5.0-8.0) Ur Specific Bert[place] (1.005-1.030) Urine Protein (Negative) Urine Glucose (UA) (Negative) Urine Ketones (Negative) Urine Occult Blood (Negative) Urine Nitrite (Negative) Urine Bilirubin (Negative) Urine Urobilinogen (0.2-1.0) Ur Leukocyte Esterase (Negative) Urine RBC (0-5) /hpf Urine WBC (0-5) /hpf Ur Epithelial Cells (0-5) /hpf Urine Bacteria (FEW) /hpf Urine Mucus (FEW) /hpf Ketones (0.0-0.3) mM Hepatitis C Antibody (NEGATIVE) HIV-1 Ab Rapid Screen (NEGATIVE) 07/24/19 07/25/19 07/25/19 Range/Units 22:55 00:06 00:06 WBC (4.23-9.07) K/mm3 RBC (4.63-6.08) M/mm3 Hgb (13.7-17.5) gm/L Hct (40.1-51.0) % MCV (79.0-92.2) fl MCH (25.7-32.2) pg MCHC (32.2-35.5) g/dl RDW Std Deviation (35.1-43.9) fL Plt Count (163-337) K/mm3 MPV (9.4-12.3) fl Neut % (Auto) Lymph % (Auto) [place] % (Auto) Eos % (Auto) Baso % (Auto) Neut # (Auto) Lymph # (Auto) [place] # (Auto) Eos # (Auto) Baso # (Auto) Neutrophils % (Manual) (40-60) % Band Neutrophils % (0-10) % Lymphocytes % (Manual) (20-40) % Atypical Lymphs % % Monocytes % (Manual) (2-10) % Eosinophils % (Manual) (0.8-7.0) % Basophils % (Manual) (0.2-1.2) Manual Slide Review Platelet Estimate Plt Morphology Comment RBC Morph Comment Sodium (136-145) mEq/L Potassium (3.5-5.1) mEq/L Chloride (98-107) mEq/L Carbon Dioxide (21-32) mEq/L Anion Gap (5-15) BUN (7-18) mg/dL Creatinine (0.7-1.3) mg/dL Est Cr Clr Drug Dosing mL/min Estimated GFR (MDRD) (>60) mL/min BUN/Creatinine Ratio (14-18) Glucose (74-106) mg/dL POC Glucose (70-105) mg/dL Serum Osmolality (280-300) mosm/kg Lactic Acid 1.3 (0.4-2.0) mmol/L Calcium (8.5-10.1) mg/dL Magnesium (1.8-2.4) mg/dl Total Bilirubin (0.2-1.0) mg/dL AST (15-37) U/L ALT (16-63) U/L Alkaline Phosphatase (46-116) U/L C-Reactive Protein (<1.0) mg/dL Total Protein (6.4-8.2) g/dl Albumin (3.4-5.0) g/dl Globulin gm/dL Albumin/Globulin Ratio (1-2) Urine Color (Yellow) Urine Appearance (Clear) Urine pH (5.0-8.0) Ur Specific [place] (1.005-1.030) Urine Protein (Negative) Urine Glucose (UA) (Negative) Urine Ketones (Negative) Urine Occult Blood (Negative) Urine Nitrite (Negative) Urine Bilirubin (Negative) Urine Urobilinogen (0.2-1.0) Ur Leukocyte Esterase (Negative) Urine RBC (0-5) /hpf Urine WBC (0-5) /hpf Ur Epithelial Cells (0-5) /hpf Urine Bacteria (FEW) /hpf Urine Mucus (FEW) /hpf Ketones 0.96 (0.0-0.3) mM Hepatitis C Antibody Negative (NEGATIVE) HIV-1 Ab Rapid Screen Negative (NEGATIVE) 07/25/19 07/25/19 07/25/19 Range/Units 01:29 01:30 02:40 WBC (4.23-9.07) K/mm3 RBC (4.63-6.08) M/mm3 Hgb (13.7-17.5) gm/L Hct (40.1-51.0) % MCV (79.0-92.2) fl MCH (25.7-32.2) pg MCHC (32.2-35.5) g/dl RDW Std Deviation (35.1-43.9) fL Plt Count (163-337) K/mm3 MPV (9.4-12.3) fl Neut % (Auto) Lymph % (Auto) [place] % (Auto) Eos % (Auto) Baso % (Auto) Neut # (Auto) Lymph # (Auto) [place] # (Auto) Eos # (Auto) Baso # (Auto) Neutrophils % (Manual) (40-60) % Band Neutrophils % (0-10) % Lymphocytes % (Manual) (20-40) % Atypical Lymphs % % Monocytes % (Manual) (2-10) % Eosinophils % (Manual) (0.8-7.0) % Basophils % (Manual) (0.2-1.2) Manual Slide Review Platelet Estimate Plt Morphology Comment RBC Morph Comment Sodium (136-145) mEq/L Potassium (3.5-5.1) mEq/L Chloride (98-107) mEq/L Carbon Dioxide (21-32) mEq/L Anion Gap (5-15) BUN (7-18) mg/dL Creatinine (0.7-1.3) mg/dL Est Cr Clr Drug Dosing mL/min Estimated GFR (MDRD) (>60) mL/min BUN/Creatinine Ratio (14-18) Glucose (74-106) mg/dL POC Glucose 371 H 291 H (70-105) mg/dL Serum Osmolality (280-300) mosm/kg Lactic Acid (0.4-2.0) mmol/L Calcium (8.5-10.1) mg/dL Magnesium (1.8-2.4) mg/dl Total Bilirubin (0.2-1.0) mg/dL AST (15-37) U/L ALT (16-63) U/L Alkaline Phosphatase (46-116) U/L C-Reactive Protein (<1.0) mg/dL Total Protein (6.4-8.2) g/dl Albumin (3.4-5.0) g/dl Globulin gm/dL Albumin/Globulin Ratio (1-2) Urine Color Light yellow (Yellow) Urine Appearance Clear (Clear) Urine pH 6.0 (5.0-8.0) Ur Specific [place] 1.010 (1.005-1.030) Urine Protein Negative (Negative) Urine Glucose (UA) 2+ H (Negative) Urine Ketones 1+ H (Negative) Urine Occult Blood Negative (Negative) Urine Nitrite Negative (Negative) Urine Bilirubin Negative (Negative) Urine Urobilinogen 0.2 (0.2-1.0) Ur Leukocyte Esterase Negative (Negative) Urine RBC 0-5 (0-5) /hpf Urine WBC Not seen (0-5) /hpf Ur Epithelial Cells Not seen (0-5) /hpf Urine Bacteria Rare (FEW) /hpf Urine Mucus Not seen (FEW) /hpf Ketones (0.0-0.3) mM Hepatitis C Antibody (NEGATIVE) HIV-1 Ab Rapid Screen (NEGATIVE) 07/25/19 07/25/19 07/25/19 Range/Units 03:35 06:02 08:11 WBC (4.23-9.07) K/mm3 RBC (4.63-6.08) M/mm3 Hgb (13.7-17.5) gm/L Hct (40.1-51.0) % MCV (79.0-92.2) fl MCH (25.7-32.2) pg MCHC (32.2-35.5) g/dl RDW Std Deviation (35.1-43.9) fL Plt Count (163-337) K/mm3 MPV (9.4-12.3) fl Neut % (Auto) Lymph % (Auto) [place] % (Auto) Eos % (Auto) Baso % (Auto) Neut # (Auto) Lymph # (Auto) [place] # (Auto) Eos # (Auto) Baso # (Auto) Neutrophils % (Manual) (40-60) % Band Neutrophils % (0-10) % Lymphocytes % (Manual) (20-40) % Atypical Lymphs % % Monocytes % (Manual) (2-10) % Eosinophils % (Manual) (0.8-7.0) % Basophils % (Manual) (0.2-1.2) Manual Slide Review Platelet Estimate Plt Morphology Comment RBC Morph Comment Sodium (136-145) mEq/L Potassium (3.5-5.1) mEq/L Chloride (98-107) mEq/L Carbon Dioxide (21-32) mEq/L Anion Gap (5-15) BUN (7-18) mg/dL Creatinine (0.7-1.3) mg/dL Est Cr Clr Drug Dosing mL/min Estimated GFR (MDRD) (>60) mL/min BUN/Creatinine Ratio (14-18) Glucose (74-106) mg/dL POC Glucose 215 H 303 H 298 H (70-105) mg/dL Serum Osmolality (280-300) mosm/kg Lactic Acid (0.4-2.0) mmol/L Calcium (8.5-10.1) mg/dL Magnesium (1.8-2.4) mg/dl Total Bilirubin (0.2-1.0) mg/dL AST (15-37) U/L ALT (16-63) U/L Alkaline Phosphatase (46-116) U/L C-Reactive Protein (<1.0) mg/dL Total Protein (6.4-8.2) g/dl Albumin (3.4-5.0) g/dl Globulin gm/dL Albumin/Globulin Ratio (1-2) Urine Color (Yellow) Urine Appearance (Clear) Urine pH (5.0-8.0) Ur Specific [place] (1.005-1.030) Urine Protein (Negative) Urine Glucose (UA) (Negative) Urine Ketones (Negative) Urine Occult Blood (Negative) Urine Nitrite (Negative) Urine Bilirubin (Negative) Urine Urobilinogen (0.2-1.0) Ur Leukocyte Esterase (Negative) Urine RBC (0-5) /hpf Urine WBC (0-5) /hpf Ur Epithelial Cells (0-5) /hpf Urine Bacteria (FEW) /hpf Urine Mucus (FEW) /hpf Ketones (0.0-0.3) mM Hepatitis C Antibody (NEGATIVE) HIV-1 Ab Rapid Screen (NEGATIVE) 07/25/19 Range/Units 08:26 WBC (4.23-9.07) K/mm3 RBC (4.63-6.08) M/mm3 Hgb (13.7-17.5) gm/L Hct (40.1-51.0) % MCV (79.0-92.2) fl MCH (25.7-32.2) pg MCHC (32.2-35.5) g/dl RDW Std Deviation (35.1-43.9) fL Plt Count (163-337) K/mm3 MPV (9.4-12.3) fl Neut % (Auto) Lymph % (Auto) [place] % (Auto) Eos % (Auto) Baso % (Auto) Neut # (Auto) Lymph # (Auto) [place] # (Auto) Eos # (Auto) Baso # (Auto) Neutrophils % (Manual) (40-60) % Band Neutrophils % (0-10) % Lymphocytes % (Manual) (20-40) % Atypical Lymphs % % Monocytes % (Manual) (2-10) % Eosinophils % (Manual) (0.8-7.0) % Basophils % (Manual) (0.2-1.2) Manual Slide Review Platelet Estimate Plt Morphology Comment RBC Morph Comment Sodium 139 (136-145) mEq/L Potassium 4.1 (3.5-5.1) mEq/L Chloride 103 (98-107) mEq/L Carbon Dioxide 27 (21-32) mEq/L Anion Gap 13.1 (5-15) BUN 9 (7-18) mg/dL Creatinine 0.6 L (0.7-1.3) mg/dL Est Cr Clr Drug Dosing 135.13 mL/min Estimated GFR (MDRD) > 60 (>60) mL/min BUN/Creatinine Ratio 15.0 (14-18) Glucose 289 H (74-106) mg/dL POC Glucose (70-105) mg/dL Serum Osmolality (280-300) mosm/kg Lactic Acid (0.4-2.0) mmol/L Calcium 8.5 (8.5-10.1) mg/dL Magnesium (1.8-2.4) mg/dl Total Bilirubin (0.2-1.0) mg/dL AST (15-37) U/L ALT (16-63) U/L Alkaline Phosphatase (46-116) U/L C-Reactive Protein (<1.0) mg/dL Total Protein (6.4-8.2) g/dl Albumin (3.4-5.0) g/dl Globulin gm/dL Albumin/Globulin Ratio (1-2) Urine Color (Yellow) Urine Appearance (Clear) Urine pH (5.0-8.0) Ur Specific [place] (1.005-1.030) Urine Protein (Negative) Urine Glucose (UA) (Negative) Urine Ketones (Negative) Urine Occult Blood (Negative) Urine Nitrite (Negative) Urine Bilirubin (Negative) Urine Urobilinogen (0.2-1.0) Ur Leukocyte Esterase (Negative) Urine RBC (0-5) /hpf Urine WBC (0-5) /hpf Ur Epithelial Cells (0-5) /hpf Urine Bacteria (FEW) /hpf Urine Mucus (FEW) /hpf Ketones (0.0-0.3) mM Hepatitis C Antibody (NEGATIVE) HIV-1 Ab Rapid Screen (NEGATIVE) Result Diagrams: 07/26/19 05:25 07/26/19 05:25 Problem List Initiated/Reviewed/Updated: Yes Orders Last 24hrs: Active Orders 24 hr Category Date Time Status Patient Status [ADT] Stat ADT 07/25/19 09:22 Active Blood Glucose Check, Bedside [RC] ONETIME Care 07/24/19 22:48 Active Blood Glucose Check, Bedside [RC] ONETIME Care 07/25/19 02:30 Active Blood Glucose Check, Bedside [RC] ONETIME Care 07/25/19 03:29 Active Blood Glucose Check, Bedside [RC] ONETIME Care 07/25/19 05:56 Active Blood Glucose Check, Bedside [RC] ONETIME Care 07/25/19 08:14 Active HEPATITIS B SURFACE AG [CHEM] Stat Lab 07/24/19 23:44 Received Insulin Regular, Human [HumuLIN R] Med 07/25/19 16:00 Active 4 unit SUBCUT BIDAC Insulin Regular, Human [HumuLIN R] 100 unit Med 07/25/19 02:00 Active Sodium Chloride 0.9% [Normal Saline] 99 ml IV TITRATE Lactated Ringers [Ringers, Lactated] 1,000 ml Med 07/25/19 02:15 Active IV .BOLUS Lactated Ringers [Ringers, Lactated] 1,000 ml Med 07/24/19 23:45 Active IV ASDIRECTED Lactated Ringers [Ringers, Lactated] 1,000 ml Med 07/25/19 08:15 Active IV ASDIRECTED Medication Orders Lactated Ringer's (Ringers, Lactated) 1,000 mls @ 500 mls/hr IV ASDIRECTED SRINIVAS Last Admin: 07/25/19 00:14 Dose: 500 mls/hr Insulin Human Regular 100 unit (/ Sodium Chloride) 100 mls @ 53.07 mls/hr IV TITRATE SRINIVAS; Protocol Lactated Ringer's (Ringers, Lactated) 1,000 mls @ 500 mls/hr IV .BOLUS SRINIVAS Last Admin: 07/25/19 03:19 Dose: 500 mls/hr Lactated Ringer's (Ringers, Lactated) 1,000 mls @ 125 mls/hr IV ASDIRECTED COUNT INCLUDES THE [facility] Insulin Human Regular (Humulin R) 4 unit SUBCUT BIDAC COUNT INCLUDES THE [facility] Assessment/Plan Comment:: Assessment: Acute: CDAD - 2/2 To recent use of antibiotic to treat staph infection - Symptoms started 2 months ago - Admitted on 07/20/2019 and discharged on the same day - Went home with oral vancomycin - He has not really gotten better since discharge according to him - He states he was taking his antibiotic as directed - Resume oral Vancomycin 125 mg po QID; if he respond good, discharge with pulsed-tapered regimen - If no response consider Fidaxomicin 200 mg BID for 10 days - He may benefit with OTC Kefir supplement; discussed this with patient Hyperglycemia - Carries a hx/o Uncontrolled DM1 - BS of 676; last A1C 12.10 - Was put on Insulin drip while in ED; d/c'd prior to coming in to the floor - Resume LA insulin and ISS - Accu-check QID Hypomagnesemia - Mg of 1.7 - Likely 2/2 GI loss - Replete and monitor Rectal Pain - Raw and red - 2/2 Intractable watery diarrhea - Supportive care - Consider Anucort if no response to initial treatment Chronic: DM1 and Nicotine Dependence Plan: Admit to [facility] Isolation Precaution Nicotine Patch IV Hydration to prevent dehydration Regular Diet and Avoid Dairy product for now; ADA in AM DVT/GI Prophylaxis Will repeat C. Diff screening Monitor electrolytes abnormality Dietary consult for undernutrition SW?CM for d/c planning Additional orders as above Prognosis good - Mortality Measure Prognosis:: Good
[2019-07-25] MEDS ORDERED: Promethazine 6.25 MG in Sodium Chloride 0.9% 50 ML IV PRN (09:54)
[2019-07-25] MEDS ORDERED: Ketorolac 30 MG/ML SDV IV PRN (09:54)
[2019-07-25] MEDS ORDERED: Ondansetron 4 MG/2 ML SDV IV PRN (09:54)
[2019-07-25] MEDS ORDERED: HYDROmorphone 0.5 MG/0.5 ML Syringe IVPUSH PRN (09:54)
[2019-07-25] MEDS ORDERED: Albuterol/Ipratropium 3.0-0.5 MG/3 ML Neb Soln NEB PRN (09:54)
[2019-07-25] MEDS ORDERED: Temazepam 15 MG Cap PO PRN (09:54)
[2019-07-25] MEDS ORDERED: oxyCODONE 5 MG Tab PO PRN (09:54)
[2019-07-25] MEDS ORDERED: LORazepam 2 MG/ML SDV IV PRN (09:54)
[2019-07-25] MEDS ORDERED: Acetaminophen 325 MG Tab PO PRN (09:54)
[2019-07-25] MEDS ORDERED: INSULIN LISPRO 1 UNIT SUBCUT SCH (10:00)
[2019-07-25] MEDS: Vancomycin 125 MG Cap PO SCH ×4 (10:42→21:10)
[2019-07-25] MEDS ORDERED: Witch Hazel Medicated Pads 40/Jar TOP PRN (10:54)
[2019-07-25] MEDS: Lactated Ringers 1,000 ML IV SCH ×2 (11:04→21:09)
[2019-07-25] MEDS ORDERED: Hydrocortisone 1% Crm 30 GM Tube TOP PRN (11:17)
[2019-07-25] MEDS ORDERED: 50% Dextrose in Water 50 ML Syringe IVPUSH PRN (11:17)
[2019-07-25] MEDS: Insulin Lispro 100 Units/ML 3 ML Vial SUBCUT SCH ×4 (12:10→21:44)
[2019-07-25] MEDS: Nicotine Polacrilex 2 MG Gum CHEW PRN ×4 (12:46→23:50)
[2019-07-25] MEDS ORDERED: Insulin Regular, Human 100 Units/ML 3 ML Vial SUBCUT SCH (16:00)
[2019-07-25] MEDS ORDERED: Insulin Glarg,Human.Rec.Analog 100 UNIT/ML ML SUBCUT ONE (16:13)
[2019-07-25] MEDS ORDERED: Benzocaine/Menthol 20%-0.5% Spray 56 GM Canister TOP PRN (19:12)
[2019-07-25] MEDS ORDERED: Magnesium Sulfate/Water 4 GM in Premix Bag 1 BAG IV ONE (21:52)
[2019-07-26] MEDS: Lactated Ringers 1,000 ML IV SCH (05:23)
[2019-07-26] MEDS ORDERED: Dicyclomine 10 MG Cap PO PRN (06:56)
[2019-07-26] MEDS: Insulin Lispro 100 Units/ML 3 ML Vial SUBCUT SCH ×4 (08:42→23:00)
[2019-07-26] MEDS: Insulin Glarg,Human.Rec.Analog 100 UNIT/ML ML SUBCUT SCH ×2 (08:44→21:07)
[2019-07-26] MEDS: Vancomycin 125 MG Cap PO SCH ×4 (08:44→21:08)
[2019-07-26] MEDS: Nicotine Polacrilex 2 MG Gum CHEW PRN ×4 (08:58→20:41)
[2019-07-26] MEDS ORDERED: Insulin Glarg,Human.Rec.Analog 100 UNIT/ML ML SUBCUT SCH (09:00)
[2019-07-26] MEDS ORDERED: Lactated Ringers 1,000 ML IV SCH (12:00)
[2019-07-26] MEDS: Loperamide 2 MG Cap PO PRN ×2 (14:37→21:08)
--- NOTE | 2019-07-26 15:31 | PCM.PN ---
- General Info Date of Service: 07/26/19 Admission Dx/Problem (Free Text): Admission Diagnosis/Problem Admission Diagnosis/Problem Clostridium difficile enterocolitis Having frequent watery diarrhea which the pt is saying occurs about 10-15 times a day Having bilateral edema of the legs Having headaches Coccyx area has redness and is raw Pt is fatigued and weak Pt has uncontrolled type 1 diabetes Labs were ordered and are pending - Review of Systems General: Reports: No Symptoms HEENT: Reports: No Symptoms Pulmonary: Reports: No Symptoms Cardiovascular: Reports: Edema Gastrointestinal: Reports: Diarrhea Genitourinary: Reports: No Symptoms Musculoskeletal: Reports: No Symptoms Skin: Reports: No Symptoms Neurological: Reports: Headache Psychiatric: Reports: No Symptoms - Patient Data Vitals - Most Recent: Last Vital Signs Temp 97.5 F 07/26/19 03:11 Pulse 101 H 07/26/19 03:11 Resp 16 07/26/19 03:11 BP 124/93 H 07/26/19 03:11 Pulse Ox 96 07/26/19 03:11 Weight - Most Recent: 116 lb 15.989 oz I&O - Last 24 Hours: Intake & Output 07/25/19 07/26/19 07/26/19 22:59 06:59 14:59 Intake Total 2960 3050 Output Total 4 Balance 2960 3046 Lab Results Last 24 Hours: Laboratory Results - last 24 hr 07/24/19 07/25/19 07/25/19 Range/Units 01:30 00:06 16:24 WBC (4.23-9.07) K/mm3 RBC (4.63-6.08) M/mm3 Hgb (13.7-17.5) gm/L Hct (40.1-51.0) % MCV (79.0-92.2) fl MCH (25.7-32.2) pg MCHC (32.2-35.5) g/dl RDW Std Deviation (35.1-43.9) fL Plt Count (163-337) K/mm3 MPV (9.4-12.3) fl Neut % (Auto) (34.0-67.9) % Lymph % (Auto) (21.8-53.1) % Anderson % (Auto) (5.3-12.2) % Eos % (Auto) (0.8-7.0) Baso % (Auto) (0.1-1.2) % Neut # (Auto) (1.78-5.38) K/mm3 Lymph # (Auto) (1.32-3.57) K/mm3 Anderson # (Auto) (0.30-0.82) K/mm3 Eos # (Auto) (0.04-0.54) K/mm3 Baso # (Auto) (0.01-0.08) K/mm3 Sodium (136-145) mEq/L Potassium (3.5-5.1) mEq/L Chloride (98-107) mEq/L Carbon Dioxide (21-32) mEq/L Anion Gap (5-15) BUN (7-18) mg/dL Creatinine (0.7-1.3) mg/dL Est Cr Clr Drug Dosing mL/min Estimated GFR (MDRD) (>60) mL/min BUN/Creatinine Ratio (14-18) Glucose (74-106) mg/dL POC Glucose 228 H (70-105) mg/dL Calcium (8.5-10.1) mg/dL Magnesium (1.8-2.4) mg/dl Total Bilirubin (0.2-1.0) mg/dL AST (15-37) U/L ALT (16-63) U/L Alkaline Phosphatase (46-116) U/L C-Reactive Protein (<1.0) mg/dL Total Protein (6.4-8.2) g/dl Albumin (3.4-5.0) g/dl Globulin gm/dL Albumin/Globulin Ratio (1-2) Ur Random Creatinine < 13.0 L (30.0-125.0) mg/dL U Random Total Protein < 6.0 (0.0-11.8) mg/dL Protein/Creatinin Ratio TNP C.difficile 027-NAP1-B1 C. difficile Tox (PCR) Hep Bs Antigen Nonreactive (NONREACTIVE) 07/25/19 07/25/19 07/26/19 Range/Units 21:13 22:40 05:25 WBC 8.49 (4.23-9.07) K/mm3 RBC 4.09 L (4.63-6.08) M/mm3 Hgb 12.5 L (13.7-17.5) gm/L Hct 36.8 L (40.1-51.0) % MCV 90.0 (79.0-92.2) fl MCH 30.6 (25.7-32.2) pg MCHC 34.0 (32.2-35.5) g/dl RDW Std Deviation 40.9 (35.1-43.9) fL Plt Count 365 H (163-337) K/mm3 MPV 9.5 (9.4-12.3) fl Neut % (Auto) 54.1 (34.0-67.9) % Lymph % (Auto) 27.6 (21.8-53.1) % Anderson % (Auto) 9.8 (5.3-12.2) % Eos % (Auto) 7.8 H (0.8-7.0) Baso % (Auto) 0.5 (0.1-1.2) % Neut # (Auto) 4.60 (1.78-5.38) K/mm3 Lymph # (Auto) 2.34 (1.32-3.57) K/mm3 Anderson # (Auto) 0.83 H (0.30-0.82) K/mm3 Eos # (Auto) 0.66 H (0.04-0.54) K/mm3 Baso # (Auto) 0.04 (0.01-0.08) K/mm3 Sodium (136-145) mEq/L Potassium (3.5-5.1) mEq/L Chloride (98-107) mEq/L Carbon Dioxide (21-32) mEq/L Anion Gap (5-15) BUN (7-18) mg/dL Creatinine (0.7-1.3) mg/dL Est Cr Clr Drug Dosing mL/min Estimated GFR (MDRD) (>60) mL/min BUN/Creatinine Ratio (14-18) Glucose (74-106) mg/dL POC Glucose 177 H (70-105) mg/dL Calcium (8.5-10.1) mg/dL Magnesium (1.8-2.4) mg/dl Total Bilirubin (0.2-1.0) mg/dL AST (15-37) U/L ALT (16-63) U/L Alkaline Phosphatase (46-116) U/L C-Reactive Protein (<1.0) mg/dL Total Protein (6.4-8.2) g/dl Albumin (3.4-5.0) g/dl Globulin gm/dL Albumin/Globulin Ratio (1-2) Ur Random Creatinine (30.0-125.0) mg/dL U Random Total Protein (0.0-11.8) mg/dL Protein/Creatinin Ratio C.difficile 027-NAP1-B1 Presumptive negative C. difficile Tox (PCR) Negative Hep Bs Antigen (NONREACTIVE) 07/26/19 07/26/19 07/26/19 Range/Units 05:25 06:20 11:33 WBC (4.23-9.07) K/mm3 RBC (4.63-6.08) M/mm3 Hgb (13.7-17.5) gm/L Hct (40.1-51.0) % MCV (79.0-92.2) fl MCH (25.7-32.2) pg MCHC (32.2-35.5) g/dl RDW Std Deviation (35.1-43.9) fL Plt Count (163-337) K/mm3 MPV (9.4-12.3) fl Neut % (Auto) (34.0-67.9) % Lymph % (Auto) (21.8-53.1) % Anderson % (Auto) (5.3-12.2) % Eos % (Auto) (0.8-7.0) Baso % (Auto) (0.1-1.2) % Neut # (Auto) (1.78-5.38) K/mm3 Lymph # (Auto) (1.32-3.57) K/mm3 Anderson # (Auto) (0.30-0.82) K/mm3 Eos # (Auto) (0.04-0.54) K/mm3 Baso # (Auto) (0.01-0.08) K/mm3 Sodium 138 (136-145) mEq/L Potassium 4.2 (3.5-5.1) mEq/L Chloride 102 (98-107) mEq/L Carbon Dioxide 27 (21-32) mEq/L Anion Gap 13.2 (5-15) BUN 19 H (7-18) mg/dL Creatinine 0.6 L (0.7-1.3) mg/dL Est Cr Clr Drug Dosing 143.10 mL/min Estimated GFR (MDRD) > 60 (>60) mL/min BUN/Creatinine Ratio 31.7 H (14-18) Glucose 149 H (74-106) mg/dL POC Glucose 174 H 152 H (70-105) mg/dL Calcium 8.1 L (8.5-10.1) mg/dL Magnesium 2.1 (1.8-2.4) mg/dl Total Bilirubin (0.2-1.0) mg/dL AST (15-37) U/L ALT (16-63) U/L Alkaline Phosphatase (46-116) U/L C-Reactive Protein < 0.2 (<1.0) mg/dL Total Protein (6.4-8.2) g/dl Albumin (3.4-5.0) g/dl Globulin gm/dL Albumin/Globulin Ratio (1-2) Ur Random Creatinine (30.0-125.0) mg/dL U Random Total Protein (0.0-11.8) mg/dL Protein/Creatinin Ratio C.difficile 027-NAP1-B1 C. difficile Tox (PCR) Hep Bs Antigen (NONREACTIVE) 07/26/19 Range/Units 12:36 WBC (4.23-9.07) K/mm3 RBC (4.63-6.08) M/mm3 Hgb (13.7-17.5) gm/L Hct (40.1-51.0) % MCV (79.0-92.2) fl MCH (25.7-32.2) pg MCHC (32.2-35.5) g/dl RDW Std Deviation (35.1-43.9) fL Plt Count (163-337) K/mm3 MPV (9.4-12.3) fl Neut % (Auto) (34.0-67.9) % Lymph % (Auto) (21.8-53.1) % Anderson % (Auto) (5.3-12.2) % Eos % (Auto) (0.8-7.0) Baso % (Auto) (0.1-1.2) % Neut # (Auto) (1.78-5.38) K/mm3 Lymph # (Auto) (1.32-3.57) K/mm3 Anderson # (Auto) (0.30-0.82) K/mm3 Eos # (Auto) (0.04-0.54) K/mm3 Baso # (Auto) (0.01-0.08) K/mm3 Sodium 138 (136-145) mEq/L Potassium 4.3 (3.5-5.1) mEq/L Chloride 103 (98-107) mEq/L Carbon Dioxide 29 (21-32) mEq/L Anion Gap 10.3 (5-15) BUN 18 (7-18) mg/dL Creatinine 0.5 L (0.7-1.3) mg/dL Est Cr Clr Drug Dosing 162.16 mL/min Estimated GFR (MDRD) > 60 (>60) mL/min BUN/Creatinine Ratio 36.0 H (14-18) Glucose 175 H (74-106) mg/dL POC Glucose (70-105) mg/dL Calcium 8.1 L (8.5-10.1) mg/dL Magnesium (1.8-2.4) mg/dl Total Bilirubin 0.2 (0.2-1.0) mg/dL AST 21 (15-37) U/L ALT 59 (16-63) U/L Alkaline Phosphatase 123 H (46-116) U/L C-Reactive Protein (<1.0) mg/dL Total Protein 5.6 L (6.4-8.2) g/dl Albumin 2.4 L (3.4-5.0) g/dl Globulin 3.2 gm/dL Albumin/Globulin Ratio 0.8 L (1-2) Ur Random Creatinine (30.0-125.0) mg/dL U Random Total Protein (0.0-11.8) mg/dL Protein/Creatinin Ratio C.difficile 027-NAP1-B1 C. difficile Tox (PCR) Hep Bs Antigen (NONREACTIVE) Yayo Results Last 24 Hours: Microbiology 07/26/19 09:45 Stool Occult Blood (YAYO) - Final Stool / Feces Med Orders - Current: Current Medications Acetaminophen (Tylenol) 650 mg PO Q4H PRN PRN Reason: Pain (Mild 1-3)/fever Albuterol/Ipratropium (Duoneb 3.0-0.5 Mg/3 Ml) 3 ml NEB Q4H PRN PRN Reason: Shortness Of Breath/wheezing Benzocaine/Menthol (Dermoplast Pain Relief Lerona) 0 gm TOP ASDIRECTED PRN PRN Reason: perirectal pain Last Admin: 07/25/19 19:53 Dose: 1 spray Dextrose/Water (Dextrose 50% In Water) 50 ml IVPUSH ASDIRECTED PRN PRN Reason: Hyperglycemia Dicyclomine HCl (Bentyl) 10 mg PO QIDACANDBED PRN PRN Reason: Abdominal Pain Hydrocortisone (Hydrocortisone 1% Crm) 0 gm TOP QID PRN PRN Reason: irritation Last Admin: 07/25/19 12:50 Dose: 1 applic Hydromorphone HCl (Dilaudid) 0.5 mg IVPUSH Q2H PRN PRN Reason: Pain (severe 7-10) Promethazine HCl 6.25 mg/ (Sodium Chloride) 50.25 mls @ 100 mls/hr IV Q6H PRN PRN Reason: Nausea/Vomiting Lactated Ringer's (Ringers, Lactated) 1,000 mls @ 25 mls/hr IV ASDIRECTED [facility] Insulin Glargine (Lantus) 25 unit SUBCUT BID [facility] Last Admin: 07/26/19 08:44 Dose: 25 units Insulin Human Lispro (Humalog) 0 unit SUBCUT QIDACANDBED [facility]; Protocol Last Admin: 07/26/19 08:42 Dose: 3 units Ketorolac Tromethamine (Toradol) 30 mg IV Q6H PRN PRN Reason: Pain (moderate 4-6) Loperamide HCl (Imodium) 2 mg PO QID PRN PRN Reason: DIARRHEA Lorazepam (Ativan) 1 mg IV Q6H PRN PRN Reason: Anxiety Nicotine Polacrilex (Nicorelief) 4 mg CHEW Q2H PRN PRN Reason: withdraw symptoms from tobacco Last Admin: 07/26/19 08:58 Dose: 4 mg Ondansetron HCl (Zofran) 4 mg IV Q6H PRN PRN Reason: Nausea/Vomiting Oxycodone HCl (Oxycodone) 5 mg PO Q4H PRN PRN Reason: Pain (moderate 4-6) Temazepam (Restoril) 15 mg PO BEDTIME PRN PRN Reason: Sleep Vancomycin HCl (Vancomycin) 125 mg PO QID [facility] Last Admin: 07/26/19 08:44 Dose: 125 mg Witch Debra (Tucks) 1 pad TOP ASDIRECTED PRN PRN Reason: rectal pain Last Admin: 07/25/19 11:34 Dose: 1 pad Discontinued Medications Dicyclomine HCl (Bentyl) 20 mg PO ONETIME ONE Stop: 07/24/19 23:42 Last Admin: 07/24/19 23:54 Dose: 20 mg Lactated Ringer's (Ringers, Lactated) 1,000 mls @ 500 mls/hr IV ASDIRECTED [facility] Last Admin: 07/25/19 00:14 Dose: 500 mls/hr Insulin Human Regular 100 unit (/ Sodium Chloride) 100 mls @ 159.21 mls/hr IV ASDIRECTED [facility]IV[facility] Last Infusion: 07/25/19 01:33 Dose: Infused Metronidazole 500 mg/ Premix 100 mls @ 100 mls/hr IV ONETIME ONE Stop: 07/25/19 02:46 Last Admin: 07/25/19 02:08 Dose: 100 mls/hr Insulin Human Regular 100 unit (/ Sodium Chloride) 100 mls @ 53.07 mls/hr IV TITRATE [facility]; Protocol Lactated Ringer's (Ringers, Lactated) 1,000 mls @ 500 mls/hr IV .BOLUS [facility] Last Admin: 07/25/19 03:19 Dose: 500 mls/hr Lactated Ringer's (Ringers, Lactated) 1,000 mls @ 125 mls/hr IV ASDIRECTED [facility] Last Admin: 07/26/19 05:23 Dose: 125 mls/hr Magnesium Sulfate 4 gm/ Premix 50 mls @ 12.5 mls/hr IV ONETIME ONE Stop: 07/26/19 01:51 Last Admin: 07/25/19 22:17 Dose: 12.5 mls/hr Insulin Glargine (Lantus) 36 unit SUBCUT DAILY [facility] Insulin Glargine (Lantus) 36 unit SUBCUT ONETIME ONE Stop: 07/25/19 16:14 Last Admin: 07/25/19 16:42 Dose: 36 units Insulin Human Regular (Humulin R) 4 unit SUBCUT BIDAC [facility] Metronidazole (Flagyl) 500 mg PO ONETIME ONE Stop: 07/25/19 05:56 Last Admin: 07/25/19 06:04 Dose: 500 mg Non-Formulary Medication (Insulin Lispro [Humalog Kwikpen U-200]) 1 unit SUBCUT ASDIRECTED [facility]IV[facility] - Exam General: Alert, Oriented HEENT: Pupils Equal, Pupils Reactive, EOMI, Mucous Membr. Moist/[place] Neck: Supple Lungs: Clear to Auscultation, Normal Respiratory Effort Cardiovascular: Regular Rate, Regular Rhythm GI/Abdominal Exam: Normal Bowel Sounds, Soft, Non-Tender, No Organomegaly, No Distention, No Abnormal Bruit, No Mass, Pelvis Stable (Male) Exam: No Hernia, Normal Inspection, Normal Prostate, Circumcised Back Exam: Normal Inspection, Full Range of Motion Extremities: Other (bilateral edema of legs) Skin: Warm, Dry, Intact Wound/Incisions: Other (coccyx area red and raw) Neurological: No New Focal Deficit Psy/Mental Status: Alert, Normal Affect, Normal Mood - Problem List & Annotations (1) Clostridium difficile diarrhea SNOMED Code(s): 0312571249582 Code(s): A04.72 - ENTEROCOLITIS D/T CLOSTRIDIUM DIFFICILE, NOT SPCF RECUR Status: Acute Current Visit: Yes (2) Insulin dependent diabetes mellitus SNOMED Code(s): 32633499 Code(s): E11.9 - TYPE 2 DIABETES MELLITUS WITHOUT COMPLICATIONS; Z79.4 - PHARMACY STUDENT (CURRENT) USE OF INSULIN Status: Acute Current Visit: Yes (3) Bilateral leg edema SNOMED Code(s): 371574520, 60906949, 956565079 Code(s): R60.0 - LOCALIZED EDEMA Status: Acute Current Visit: No (4) Cellulitis SNOMED Code(s): 312333175 Code(s): L03.90 - CELLULITIS, UNSPECIFIED Status: Acute Current Visit: No Qualifiers: Qualified Code(s): L03.114 - Cellulitis of left upper limb (5) Diarrhea SNOMED Code(s): 71674398 Code(s): R19.7 - DIARRHEA, UNSPECIFIED Status: Acute Current Visit: No - Problem List Review Problem List Initiated/Reviewed/Updated: Yes - Assessment Assessment:: Having frequent watery diarrhea which the pt is saying occurs about 10-15 times a day Question c diff diarrhea or other cause Complete evaluation with a colonoscopy considered Having bilateral edema of the legs mild and unchanged Having headaches Coccyx area has redness and is raw using barrier cream and topical Pt is fatigued and weak Pt has uncontrolled type 1 diabetes Labs were ordered and are pending - Plan Plan:: Assessment: Acute: CDAD - 2/2 To recent use of antibiotic to treat staph infection - Symptoms started 2 months ago - Admitted on 07/20/2019 and discharged on the same day - Went home with oral vancomycin - He has not really gotten better since discharge according to him - He states he was taking his antibiotic as directed - Resume oral Vancomycin 125 mg po QID; if he respond good, discharge with pulsed-tapered regimen - If no response consider Fidaxomicin 200 mg BID for 10 days - He may benefit with OTC Kefir supplement; discussed this with patient Hyperglycemia - Carries a hx/o Uncontrolled DM1 - BS of 676; last A1C 12.10 - Was put on Insulin drip while in ED; d/c'd prior to coming in to the floor - Resume LA insulin and ISS - Accu-check QID Hypomagnesemia - Mg of 1.7 - Likely 2/2 GI loss - Replete and monitor Rectal Pain - Raw and red - 2/2 Intractable watery diarrhea - Supportive care - Consider Anucort if no response to initial treatment Chronic: DM1 and Nicotine Dependence Plan: Admit to [facility] Isolation Precaution Nicotine Patch IV Hydration to prevent dehydration Regular Diet and Avoid Dairy product for now; ADA in AM DVT/GI Prophylaxis Will repeat C. Diff screening Monitor electrolytes abnormality Dietary consult for undernutrition SW?CM for d/c planning Additional orders as above Prognosis good
[2019-07-26] MEDS ORDERED: Cholestyramine/Sucrose Powder 4 GM Packet PO SCH (22:00)
[2019-07-27] MEDS ORDERED: Insulin Lispro 100 UNIT/ML 10 ML VIAL SUBCUT SCH
[2019-07-27] MEDS ORDERED: Insulin Glarg,Human.Rec.Analog 100 UNIT/ML ML SUBCUT SCH
[2019-07-27] MEDS: Nicotine Polacrilex 2 MG Gum CHEW PRN ×3 (02:40→12:25)
[2019-07-27] MEDS: Insulin Lispro 100 Units/ML 3 ML Vial SUBCUT SCH ×3 (09:23→19:34)
[2019-07-27] MEDS: Vancomycin 125 MG Cap PO SCH ×3 (09:25→19:34)
[2019-07-27] MEDS: Insulin Glarg,Human.Rec.Analog 100 UNIT/ML ML SUBCUT SCH (09:26)
[2019-07-27] MEDS: Loperamide 2 MG Cap PO PRN (09:36)
--- NOTE | 2019-07-27 14:06 | PCM.DCSUM1 ---
Discharge Summary - Hospital Course Free Text/Narrative:: c diff colitis responding to vanco after 6 days and addition of cholystyrimine at h.s . immodium 4 x day treat x one more week and followup HPI Initial Comments: diabetes and diarrhea in patient with known c diff - Discharge Data Discharge Date: 07/27/19 Discharge Disposition: Home, Self-Care 01 Condition: Good - Discharge Diagnosis/Problem(s) (1) Clostridium difficile diarrhea SNOMED Code(s): 0063806257824 ICD Code: A04.72 - ENTEROCOLITIS D/T CLOSTRIDIUM DIFFICILE, NOT SPCF RECUR Status: Acute Priority: High Current Visit: Yes Onset Date: (2) Insulin dependent diabetes mellitus SNOMED Code(s): 78700223 ICD Code: E11.9 - TYPE 2 DIABETES MELLITUS WITHOUT COMPLICATIONS; Z79.4 - [facility] (CURRENT) USE OF INSULIN Status: Acute Priority: Medium Current Visit: Yes Onset Date: 07/25/19 (3) Bilateral leg edema SNOMED Code(s): 541943858, 30303949, 044512644 ICD Code: R60.0 - LOCALIZED EDEMA Status: Acute Priority: Medium Current Visit: No Onset Date: 07/25/19 (4) Cellulitis SNOMED Code(s): 083493445 ICD Code: L03.90 - CELLULITIS, UNSPECIFIED Status: Acute Priority: Low Current Visit: No Onset Date: 07/25/19 Qualifiers: Site of cellulitis: extremity Site of cellulitis of extremity: toe Laterality: left Qualified Code(s): L03.032 - Cellulitis of left toe (5) Diarrhea SNOMED Code(s): 78313403 ICD Code: R19.7 - DIARRHEA, UNSPECIFIED Status: Acute Priority: High Current Visit: No Onset Date: 07/25/19 Problem Details: now responding to vanco with immodium (6) Hyperglycemia SNOMED Code(s): 97337358 ICD Code: R73.9 - HYPERGLYCEMIA, UNSPECIFIED Status: Acute Priority: Medium Current Visit: No Onset Date: 07/25/19 Problem Details: doing well on insulin with sliding scale and to cont at home - Patient Summary/Data Consults: Consultations 07/25/19 09:54 Consult to Case Management/Money Market Dealer [CONS] Routine Consult to Operational Communication Chief [CONS] Routine - Discharge Plan *PRESCRIPTION DRUG MONITORING PROGRAM REVIEWED*: Not Applicable *COPY OF PRESCRIPTION DRUG MONITORING REPORT IN PATIENT VI: Not Applicable Prescriptions/Med Rec: Dicyclomine [Bentyl] 10 mg PO QIDACANDBED PRN 60 Days #60 cap PRN Reason: Abdominal Pain Insulin Glargine,Hum.Rec.Anlog [Lantus Solostar] 36 unit SQ DAILY #1 ml Insulin Lispro [HumaLOG] 0 unit SUBCUT QIDACANDBED #1 vial Loperamide [Imodium] 2 mg PO QID PRN #120 cap PRN Reason: DIARRHEA Nicotine Polacrilex [Nicorelief] 4 mg CHEW Q2H PRN #30 gum PRN Reason: withdraw symptoms from tobacco Vancomycin [Vancomycin 50 MG/ML Soln] 125 mg PO QID 7 Days bottle Home Medications: Home Meds Insulin Lispro [Humalog Kwikpen U-200] 1 unit SUBCUT ASDIRECTED 11/06/17 [ History] Dicyclomine [Bentyl] 10 mg PO QIDACANDBED PRN 60 Days #60 cap 07/27/19 [Rx] Hydrocortisone [Hydrocortisone 1% Crm] 0 gm TOP QID PRN tube 07/27/19 [Rx] Insulin Glargine,Hum.Rec.Anlog [Lantus Solostar] 36 unit SQ DAILY #1 ml [Rx] Insulin Lispro [HumaLOG] 0 unit SUBCUT QIDACANDBED #1 vial 07/27/19 [Rx] Loperamide [Imodium] 2 mg PO QID PRN #120 cap 07/27/19 [Rx] Nicotine Polacrilex [Nicorelief] 4 mg CHEW Q2H PRN #30 gum 07/27/19 [Rx] Vancomycin [Vancomycin 50 MG/ML Soln] 125 mg PO QID 7 Days bottle 07/27/19 [Rx] Oxygen Therapy Mode: Room Air Patient Handouts: Contact Precautions, [id number], Clostridium Difficile Infection, [id number], Hand Washing, [id number]-hq-[id number], Smokeless Tobacco Information, Adult Forms: ED Department Discharge Referrals: Emre Burciaga MD [Primary Care Provider] - - Discharge Summary/Plan Comment DC Time >30 min.: Yes - General Info Date of Service: 07/27/19 Admission Dx/Problem (Free Text: day 3 doing much better eating wel without abd pain . diarrhea 14 x yest but 2 normal bms. this am . no fever or chills . lab negative everything assess c diff colitis slow responding on oral vanco day 6 and will cont x one week given slow response. cont colestid / electrolytes stable w/u for other causes diarrhea pending . hx of tattoos without signs of hepatitis Functional Status: Reports: Pain Controlled, Tolerating Diet, Ambulating, Urinating - Review of Systems General: Reports: No Symptoms HEENT: Reports: No Symptoms Pulmonary: Reports: No Symptoms Cardiovascular: Reports: No Symptoms Gastrointestinal: Reports: No Symptoms, Diarrhea Genitourinary: Reports: No Symptoms Musculoskeletal: Reports: No Symptoms Skin: Reports: No Symptoms Neurological: Reports: No Symptoms Psychiatric: Reports: No Symptoms - Patient Data Vitals - Most Recent: Last Vital Signs Temp 37.1 C 07/27/19 12:56 Pulse 102 H 07/27/19 12:56 Resp 12 07/27/19 12:56 BP 145/103 H 07/27/19 12:56 Pulse Ox 97 07/27/19 12:56 Weight - Most Recent: 57.516 kg I&O - Last 24 hours: Intake & Output 07/26/19 07/27/19 07/27/19 22:59 06:59 14:59 Intake Total 3677 2163 240 Balance 3677 2163 240 Lab Results - Last 24 hrs: Laboratory Results - last 24 hr 07/26/19 07/26/19 07/27/19 Range/Units 16:40 20:44 05:27 WBC 7.91 (4.23-9.07) K/mm3 RBC 3.90 L (4.63-6.08) M/mm3 Hgb 11.8 L (13.7-17.5) gm/L Hct 35.3 L (40.1-51.0) % MCV 90.5 (79.0-92.2) fl MCH 30.3 (25.7-32.2) pg MCHC 33.4 (32.2-35.5) g/dl RDW Std Deviation 41.1 (35.1-43.9) fL Plt Count 344 H (163-337) K/mm3 MPV 9.6 (9.4-12.3) fl Neut % (Auto) 52.4 (34.0-67.9) % Lymph % (Auto) 27.8 (21.8-53.1) % [place] % (Auto) 13.4 H (5.3-12.2) % Eos % (Auto) 5.6 (0.8-7.0) Baso % (Auto) 0.4 (0.1-1.2) % Neut # (Auto) 4.15 (1.78-5.38) K/mm3 Lymph # (Auto) 2.20 (1.32-3.57) K/mm3 [place] # (Auto) 1.06 H (0.30-0.82) K/mm3 Eos # (Auto) 0.44 (0.04-0.54) K/mm3 Baso # (Auto) 0.03 (0.01-0.08) K/mm3 Sodium (136-145) mEq/L Potassium (3.5-5.1) mEq/L Chloride (98-107) mEq/L Carbon Dioxide (21-32) mEq/L Anion Gap (5-15) BUN (7-18) mg/dL Creatinine (0.7-1.3) mg/dL Est Cr Clr Drug Dosing mL/min Estimated GFR (MDRD) (>60) mL/min BUN/Creatinine Ratio (14-18) Glucose (74-106) mg/dL POC Glucose 155 H 161 H (70-105) mg/dL Calcium (8.5-10.1) mg/dL Magnesium (1.8-2.4) mg/dl C-Reactive Protein (<1.0) mg/dL 07/27/19 07/27/19 Range/Units 05:27 05:31 WBC (4.23-9.07) K/mm3 RBC (4.63-6.08) M/mm3 Hgb (13.7-17.5) gm/L Hct (40.1-51.0) % MCV (79.0-92.2) fl MCH (25.7-32.2) pg MCHC (32.2-35.5) g/dl RDW Std Deviation (35.1-43.9) fL Plt Count (163-337) K/mm3 MPV (9.4-12.3) fl Neut % (Auto) (34.0-67.9) % Lymph % (Auto) (21.8-53.1) % [place] % (Auto) (5.3-12.2) % Eos % (Auto) (0.8-7.0) Baso % (Auto) (0.1-1.2) % Neut # (Auto) (1.78-5.38) K/mm3 Lymph # (Auto) (1.32-3.57) K/mm3 [place] # (Auto) (0.30-0.82) K/mm3 Eos # (Auto) (0.04-0.54) K/mm3 Baso # (Auto) (0.01-0.08) K/mm3 Sodium 136 (136-145) mEq/L Potassium 4.2 (3.5-5.1) mEq/L Chloride 104 (98-107) mEq/L Carbon Dioxide 27 (21-32) mEq/L Anion Gap 9.2 (5-15) BUN 22 H (7-18) mg/dL Creatinine 0.6 L (0.7-1.3) mg/dL Est Cr Clr Drug Dosing 146.45 mL/min Estimated GFR (MDRD) > 60 (>60) mL/min BUN/Creatinine Ratio 36.7 H (14-18) Glucose 151 H (74-106) mg/dL POC Glucose 152 H (70-105) mg/dL Calcium 8.4 L (8.5-10.1) mg/dL Magnesium 1.7 L (1.8-2.4) mg/dl C-Reactive Protein < 0.2 (<1.0) mg/dL SCOTT Results - Last 24 hrs: Microbiology 07/26/19 09:45 Stool Culture - Preliminary Stool / Feces Shiga Toxin I - Final NEGATIVE FOR SHIGA TOXIN 1 REFERENCE RANGE: NEGATIVE Shiga Toxin II - Final NEGATIVE FOR SHIGA TOXIN 2 REFERENCE RANGE: NEGATIVE 07/26/19 09:45 Stool Lactoferrin - Final Stool / Feces 07/26/19 14:00 Stool for WBCs - Final Stool / Feces NO WBC SEEN REFERENCE RANGE: NO WBC SEEN Helicobacter pylori Antigen - Final NEGATIVE H. PYLORI AG REFERENCE RANGE: NEGATIVE 07/26/19 09:45 Stool Occult Blood (SCOTT) - Final Stool / Feces Med Orders - Current: Current Medications Acetaminophen (Tylenol) 650 mg PO Q4H PRN PRN Reason: Pain (Mild 1-3)/fever Albuterol/Ipratropium (Duoneb 3.0-0.5 Mg/3 Ml) 3 ml NEB Q4H PRN PRN Reason: Shortness Of Breath/wheezing Benzocaine/Menthol (Dermoplast Pain Relief Counselor) 0 gm TOP ASDIRECTED PRN PRN Reason: perirectal pain Last Admin: 07/25/19 19:53 Dose: 1 spray Cholestyramine Resin (Cholestyramine Packet) 4 gm PO 2200 [facility] Last Admin: 07/26/19 23:00 Dose: 4 gm Dextrose/Water (Dextrose 50% In Water) 50 ml IVPUSH ASDIRECTED PRN PRN Reason: Hyperglycemia Dicyclomine HCl (Bentyl) 10 mg PO QIDACANDBED PRN PRN Reason: Abdominal Pain Hydrocortisone (Hydrocortisone 1% Crm) 0 gm TOP QID PRN PRN Reason: irritation Last Admin: 07/25/19 12:50 Dose: 1 applic Hydromorphone HCl (Dilaudid) 0.5 mg IVPUSH Q2H PRN PRN Reason: Pain (severe 7-10) Promethazine HCl 6.25 mg/ (Sodium Chloride) 50.25 mls @ 100 mls/hr IV Q6H PRN PRN Reason: Nausea/Vomiting Insulin Glargine (Lantus) 25 unit SUBCUT BID [facility] Last Admin: 07/27/19 09:26 Dose: 25 units Insulin Human Lispro (Humalog) 0 unit SUBCUT QIDACANDBED [facility]; Protocol Last Admin: 07/27/19 11:15 Dose: Not Given Ketorolac Tromethamine (Toradol) 30 mg IV Q6H PRN PRN Reason: Pain (moderate 4-6) Loperamide HCl (Imodium) 2 mg PO QID PRN PRN Reason: DIARRHEA Last Admin: 07/27/19 09:36 Dose: 2 mg Lorazepam (Ativan) 1 mg IV Q6H PRN PRN Reason: Anxiety Nicotine Polacrilex (Nicorelief) 4 mg CHEW Q2H PRN PRN Reason: withdraw symptoms from tobacco Last Admin: 07/27/19 12:25 Dose: 4 mg Ondansetron HCl (Zofran) 4 mg IV Q6H PRN PRN Reason: Nausea/Vomiting Oxycodone HCl (Oxycodone) 5 mg PO Q4H PRN PRN Reason: Pain (moderate 4-6) Temazepam (Restoril) 15 mg PO BEDTIME PRN PRN Reason: Sleep Vancomycin HCl (Vancomycin) 125 mg PO QID [facility] Last Admin: 07/27/19 12:52 Dose: 125 mg Witch Debra (Tucks) 1 pad TOP ASDIRECTED PRN PRN Reason: rectal pain Last Admin: 07/25/19 11:34 Dose: 1 pad Discontinued Medications Dicyclomine HCl (Bentyl) 20 mg PO ONETIME ONE Stop: 07/24/19 23:42 Last Admin: 07/24/19 23:54 Dose: 20 mg Lactated Ringer's (Ringers, Lactated) 1,000 mls @ 500 mls/hr IV ASDIRECTED [facility] Last Admin: 07/25/19 00:14 Dose: 500 mls/hr Insulin Human Regular 100 unit (/ Sodium Chloride) 100 mls @ 159.21 mls/hr IV ASDIRECTED [facility] Last Infusion: 07/25/19 01:33 Dose: Infused Metronidazole 500 mg/ Premix 100 mls @ 100 mls/hr IV ONETIME ONE Stop: 07/25/19 02:46 Last Admin: 07/25/19 02:08 Dose: 100 mls/hr Insulin Human Regular 100 unit (/ Sodium Chloride) 100 mls @ 53.07 mls/hr IV TITRATE SRINIVAS; Protocol Lactated Ringer's (Ringers, Lactated) 1,000 mls @ 500 mls/hr IV .BOLUS [facility] Last Admin: 07/25/19 03:19 Dose: 500 mls/hr Lactated Ringer's (Ringers, Lactated) 1,000 mls @ 125 mls/hr IV ASDIRECTED [facility] Last Admin: 07/26/19 05:23 Dose: 125 mls/hr Magnesium Sulfate 4 gm/ Premix 50 mls @ 12.5 mls/hr IV ONETIME ONE Stop: 07/26/19 01:51 Last Admin: 07/25/19 22:17 Dose: 12.5 mls/hr Lactated Ringer's (Ringers, Lactated) 1,000 mls @ 25 mls/hr IV ASDIRECTED [facility] Last Admin: 07/26/19 14:58 Dose: 25 mls/hr Insulin Glargine (Lantus) 36 unit SUBCUT DAILY [facility] Insulin Glargine (Lantus) 36 unit SUBCUT ONETIME ONE Stop: 07/25/19 16:14 Last Admin: 07/25/19 16:42 Dose: 36 units Insulin Human Regular (Humulin R) 4 unit SUBCUT BIDAC [facility] Metronidazole (Flagyl) 500 mg PO ONETIME ONE Stop: 07/25/19 05:56 Last Admin: 07/25/19 06:04 Dose: 500 mg Non-Formulary Medication (Insulin Lispro [Humalog Kwikpen U-200]) 1 unit SUBCUT ASDIRECTED SRINIVAS - Exam General: Reports: Alert, Oriented HEENT: Reports: Pupils Equal, Pupils Reactive, EOMI, Mucous Membr. Moist/[place] Neck: Reports: Supple Lungs: Reports: Clear to Auscultation, Normal Respiratory Effort Cardiovascular: Reports: Regular Rate, Regular Rhythm, Other (mild edema resolved / mild arthralgias resolved ) GI/Abdominal Exam: Normal Bowel Sounds, Soft, Non-Tender, No Organomegaly, No Distention, No Abnormal Bruit, No Mass, Pelvis Stable (Male) Exam: No Hernia, Normal Inspection, Normal Prostate, Circumcised Rectal (Males) Exam: Normal Exam, Normal Rectal Tone, Prostate Normal Back Exam: Reports: Normal Inspection, Full Range of Motion Extremities: Normal Inspection, Normal Range of Motion, Non-Tender, No Pedal Edema, Normal Capillary Refill Skin: Reports: Warm, Dry, Intact Wound/Incisions: Reports: Healing Well Neurological: Reports: No New Focal Deficit Psy/Mental Status: Reports: Alert, Normal Affect, Normal Mood
== END 2019-07-27 16:02 | disposition home or self-care (01) | DRG 372 ==
LOC: JD.ED 22:04 → JD.MS 07-25 09:22
PROVIDERS: ADMIT Internal Medicine; ATTEND Internal Medicine
DX: A04.72 Enterocolitis due to Clostridium difficile, not specified as recurrent (principal); L03.116 Cellulitis of left lower limb; L03.032 Cellulitis of left toe; H54.7 Unspecified visual loss; I10 Essential (primary) hypertension; F17.210 Nicotine dependence, cigarettes, uncomplicated; E10.65 Type 1 diabetes mellitus with hyperglycemia; E83.42 Hypomagnesemia; K62.89 Other specified diseases of anus and rectum; Z79.899 Other long term (current) drug therapy
CPT/HCPCS: 36415; 80048; 80053; 80074; 81001; 82009; 82272; 82570; 82962; 83605; 83630; 83735; 83930; 84156; 85007; 85025; 85027; 85652; 86140; 86803; 87046; 87328; 87329; 87338; 87340; 87427; 87493; 89055; 89125; 96361; 96365; 96366; 96368; 99284-25; 99285; A9270-GY; G0433; J1815-GY; J3475; J3490; J7030; J7120